=== PATIENT | female | born 1960 | race Caucasian/White ===

== ENCOUNTER 2022-05-07 15:41 | Inpatient (IN) | payer MEDICAID, SELFPAY ==
[2022-05-07] VITALS (188 sets, daily range): BP systolic 147–205; BP diastolic 84–151; PULSE 61–135; RESP 14–51; TEMP 36.3–37.3; O2SAT 90–100
--- NOTE | 2022-05-07 15:30 | RT.EKG_ITS ---
APPROVED REPORT Exam: Resting ECG Reason for Exam: sob Patient Location: E HR:125 bpm ECG Measurements Heart Rate 125 AXIS SD 149 P 75 QRSd 82 QRS -20 QT 312 T [id number] QTc 450 Conclusion Sinus tachycardia...rate> 99 Probable left atrial enlargement...P >50mS, <-0.10mV V1 LVH with secondary repolarization abnormality...multi-LVH criteria, abnrm ST-T. Sinus. Normal qrs. Reassuring qtc. 1mm ST depression/T wave inversion V5. No STEMI. I have reviewed and interpreted ECG and agree with software generated interpretation.
--- NOTE | 2022-05-07 16:00 | DI.CT_ITS ---
Exam(s) CT CHEST/ABD/PEL WO EXAM: CT CHEST/ABD/PEL WO CLINICAL HISTORY: Chest Pain, SOB,. TECHNIQUE: Imaging Protocol: Axial computed tomography images with coronal and sagittal reformatted images were created and reviewed CONTRAST MATERIAL: Intravenous: none Oral: None COMPARISON: No exams were available for comparison FINDINGS: CHEST: LUNGS: There is increased bilateral interstitial pattern and there are small bilateral pleural effusi ons, right slightly larger than left. Some fluid is seen in the left major fissure. No confluent in filtrates. There is a subpleural nodule in the right upper lobe measuring 8 by 6 mm. There is anoth er nodular infiltrate in the right lower lobe just above the hemidiaphragm measuring 11 by 9 mm. No significant findings in the trachea and mainstem bronchi. No bronchiectasis. MEDIASTINUM: There are mildly enlarged lymph nodes in the anterior left mediastinal fat and subcarina l region. Also right paratracheal. Hilar regions difficult to assess for adenopathy without IV cont rast. No axillary adenopathy. No supraclavicular adenopathy evident. Visualized thyroid unremarkab le. CARDIAC: Mild cardiomegaly. Slight thickening of the pericardium but without a large pericardial eff usion.Caliber of the thoracic aorta is within normal limits. OSSEOUS: No significant osseous lesions.No fractures.. OTHER: There is a well defined benign-appearing cystic mass in the subcutaneous tissues over the righ t side of the back measuring 2 by 1.3 cm. Probably a large sebaceous cyst. No other similar finding s seen elsewhere in the subcutaneous tissues. ABDOMEN: There is no ascites. LIVER: There is a 9 x 7 millimeter probable benign cyst in the left hepatic lobe. No other obvious i ntra hepatic findings on this noninfused study. GALLBLADDER/BILIARY: No obvious gallbladder pathology. CBD is not dilated. PANCREAS: No evidence of obvious pancreatic mass nor dilatation of the pancreatic duct. SPLEEN: Spleen is not enlarged. No obvious intrasplenic lesions. ADRENALS: There are no significant adrenal masses. KIDNEYS: No calculi nor hydronephrosis. No obvious solid renal masses. There is a benign cyst in the inferior pole region of the left kidney which measures 2.4 x 2.4 cm. There is a subtle density in th e lateral cortex of the right kidney measuring 1.5 x 1.6 cm, difficult to assess without IV contrast. May not be simple cyst. ABDOMINAL AORTA: Abdominal aorta is not enlarged. LYMPH NODES: There is no retroperitoneal nor para-aortic adenopathy. ABDOMINAL WALL/GI: No evidence of significant anterior abdominal wall nor inguinal hernia. No evidence of bowel obstruction. PELVIS: LYMPH NODES: There is no intrapelvic nor inguinal adenopathy. GI: No evidence of appendicitis.No evidence of sigmoid diverticulitis. URINARY BLADDER: No calculi nor obvious masses evident REPRODUCTIVE: Uterus and adnexal regions unremarkable. No masses. No free fluid. OSSEOUS: No significant osseous lesions. No fractures. IMPRESSION: 1. Cardiomegaly. Interstitial disease bilaterally and small bilateral pleural effusions. These find ings are most probably consistent with pulmonary edema. 2. There are 2 nodular densities in the right lung measuring 8 mm in the right upper lobe and 11 mm i n the right lower lobe just above the hemidiaphragm. 3. There are enlarged lymph nodes in the mediastinum both in the anterior mediastinal fat and in the subcarinal region. These above findings require close follow-up. 4. There is a benign cyst in the left kidney measuring 2.4 x 2.4 cm. There is a subtle suggestion o n this non few study of a 1.5 x 1.6 cm complicated cyst or nodule in the right kidney. Recommend fol low-up ultrasound of the kidneys. First read by [facility]. Final report called by myself to ER provider 05/07/2022 7:30 p.m. RADIATION DOSE DELIVERED: 1,013.82mGy.cm Total DLP DATA REPOSITORY: All CT scans at this facility are submitted to the National Radiology Data Registry (NRDR) Dose Index Registry (DIR) with the [employer] (ACR). RADIATION OPTIMIZATION: All CT scans at this facility use at least one of these dose optimization te chniques: automated exposure control; mA and/or kV adjustment per patient size (includes targeted exa ms where dose is matched to clinical indication); or iterative reconstruction.
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
[2022-05-07 16:17] LABS: Abs Immature Grans 0.02 10^3/uL (0.0-0.06); Absolute Eosinophil Count 0.19 10^3/uL (0.0-0.7); Absolute Lymphocyte Count 1.89 10^3/uL (1.2-3.4); Absolute Monocyte Count 0.31 10^3/uL (0.1-0.8); Absolute Neutrophil Count 5.34 10^3/uL (1.2-6.7); Basophils % 1.3; Eosinophils % 2.4; HCT 41.5 % (36.0-46.0); HGB 12.8 g/dL (11.2-15.7); Immature Grans % 0.3; Lymphocytes % 24.1; MCH 26.3 pg (27.0-33.0); MCHC 30.8 % (32.0-36.0); MCV 85 fL (80-95); MPV 9.5 fL (8.0-11.0); Monocytes % 3.9; Platelet Count 340 10^3/uL (130-400); RBC 4.86 10^6/uL (3.93-5.22); RDW 15.1 % (11.7-14.6); RDW-SD 46.3 fL; WBC 7.85 10^3/uL (4.4-10.8)
[2022-05-07] MEDS: LORazepam 2 MG/ML VIAL 0.5 MG IVP (16:23)
[2022-05-07] MEDS: methylPREDNISolone SUCC 125 MG VIAL IVP (16:24)
[2022-05-07] MEDS: Normal Saline 500 ML IV (16:24)
[2022-05-07 16:40] LABS: ALT 55 U/L (14-59); AST 40 U/L (15-37); Albumin 4.2 g/dL (3.4-5.0); Alkaline Phosphatase 82 U/L (46-116); Anion Gap 14.5 mmol/L (3-11); BUN 15 mg/dL (7-18); Bilirubin, Total 0.8 mg/dL (0.2-1.0); CO2 26.5 mmol/L (21.0-32.0); CREATININE 1.1 mg/dL (0.55-1.02); Calcium 9.4 mg/dL (8.5-10.1); Chloride 105 mmol/L (98-107); Estimated GFR 57.88 (mL/min/1.73m2); Glucose 152 mg/dL (74-106); Magnesium 2.1 mg/dL (1.8-2.4); Potassium 3.7 mmol/L (3.5-5.1); Sodium 146 mmol/L (136-145); Total Protein 8.4 g/dL (6.4-8.2); Troponin I < 50 ng/L (<or=60)
[2022-05-07 17:03] LABS: COVID-19 PCR Negative (Negative); Influenza A PCR Negative (Negative); Influenza B PCR Negative (Negative); RSV PCR Negative (Negative)
[2022-05-07 17:04] LABS: D-Dimer 1111 ng/mlFEU (<500)
[2022-05-07 17:06] LABS: Source Nasopharynx
--- NOTE | 2022-05-07 17:33 | DI.VRAD_ITS ---
PROCEDURE INFORMATION: Exam: CT Chest Without Contrast; Diagnostic Exam date and time: 05/07/2022 4:55 PM Age: 61 years old Clinical indication: Other: Chest pain, SOB, TECHNIQUE: Imaging protocol: Diagnostic computed tomography of the chest without contrast. COMPARISON: No relevant prior studies available. FINDINGS: Lungs: Diffuse thickening of the interstitium throughout. No consolidation. No suspicious lung masses. Pleural spaces: Small layering bilateral pleural effusions. Heart: Heart is enlarged. Small pericardial effusion. Lymph nodes: 1.3 cm short axis right paratracheal lymph node. 0.8 cm short axis prevascular lymph node. More posteriorly is a 0.9 cm prevascular lymph node. No suspicious axillary adenopathy. No obvious hilar adenopathy. Vasculature: Mild calcifications of the thoracic aorta. No aneurysmal dilatation. Bones/joints: Degenerative changes of the thoracic spine. No suspicious lytic or blastic bone lesions. Soft tissues: Unremarkable. IMPRESSION: 1. Enlarged heart, small bilateral pleural effusions, small pericardial effusion, and thickening of the interstitium suspicious for interstitial edema can be due to congestive heart failure in the proper clinical setting. 2. Enlarged right paratracheal lymph node. Etiology is unclear. PROCEDURE INFORMATION: Exam: CT Abdomen And Pelvis Without Contrast Exam date and time: 05/07/2022 4:55 PM Age: 61 years old Clinical indication: Other: Chest pain, SOB, TECHNIQUE: Imaging protocol: Computed tomography of the abdomen and pelvis without contrast. COMPARISON: No relevant prior studies available. FINDINGS: Lungs: See chest CT report. Liver: Normal. No mass. Gallbladder and bile ducts: Normal. No calcified stones. No ductal dilation. Pancreas: Normal. No ductal dilation. Spleen: Normal. No splenomegaly. Adrenal glands: Normal. No mass. Kidneys and ureters: 2.1 cm simple cyst in the lower pole of the left kidney. No other obvious renal masses. No hydronephrosis. No renal calculi. Stomach and bowel: Unremarkable. No obstruction. No mucosal thickening. Appendix: No evidence of appendicitis. Intraperitoneal space: Unremarkable. No free air. No significant fluid collection. Vasculature: Unremarkable. No abdominal aortic aneurysm. Lymph nodes: Unremarkable. No enlarged lymph nodes. Urinary bladder: Unremarkable as visualized. Reproductive: Unremarkable as visualized. Bones/joints: Degenerative changes of the lumbar spine. No suspicious lytic or blastic bone lesions. Soft tissues: Unremarkable. IMPRESSION: No acute findings in the abdomen and pelvis Dictated and Authenticated by: Kory Quintanilla MD. Ordering:STEPHANIE Street MD
[2022-05-07 17:38] LABS: BE (Venous) -1 mmol/L (-2-3); HCO3 (Venous) 24 mmol/L (23-28); O2 Sat (Venous) 72 %; TCO2 (Venous) 22 mmol/L (24-29); pCO2 (Venous) 36 mmHg (41-51); pH (Venous) 7.43 (7.31-7.41); pO2 (Venous) 38 mmHg
[2022-05-07] MEDS: Albuterol 2.5 MG/3 ML INH SOLN VIAL UPD (17:39)
[2022-05-07 17:40] LABS: Lactate 1.4 mmol/L (0.6-1.4)
[2022-05-07] MEDS: Ipratropium 0.5 MG/2.5 ML UPD VIAL UPD (17:40)
[2022-05-07 18:05] LABS: NT-proBNP 6453 pg/mL (<300)
[2022-05-07] MEDS: MORPHine 4 MG/ML SYR IVP (18:07)
[2022-05-07] MEDS: Furosemide 40 MG/4 ML VIAL IVP (18:43)
[2022-05-07 18:59] LABS: INR 1.1 (0.9-1.1); PTT Activated 23.2 sec (21.5-31.9); Prothrombin Time 11.1 sec (9.3-11.0)
--- NOTE | 2022-05-07 19:15 | DI.CT_ITS ---
Exam(s) CT CHEST PE CTA EXAM: CT CHEST PE CTA CLINICAL HISTORY: SOB, Elevated Dimer. TECHNIQUE: Imaging Protocol: CT angiography of the chest was performed using pulmonary embolus chelle col. Multi planar reconstructions were performed. CONTRAST MATERIAL: Intravenous: Omnipaque 350 Contrast volume: 100 cc COMPARISON: CT CT CHEST/ABD/PEL WO from 05/07/2022 FINDINGS: CHEST: PULMONARY ARTERIES: There are no intraluminal filling defects to suggest acute pulmonary emboli. LUNGS: Bilateral symmetrical infiltrates and small-moderate size bilateral pleural effusions again no iban, most probably pulmonary edema.. MEDIASTINUM: No obvious hilar adenopathy but there are enlarged lymph nodes in the anterior mediastin al fat and slightly prominent right paratracheal lymph nodes. Visualized thyroid unremarkable. CARDIAC: Cardiomegaly. Slight thickening of the pericardium.Caliber of the thoracic aorta is within normal limits. No evidence dissection. There is no significant shift of the interventricular septum. PARTIALLY VISUALIZED UPPERMOST ABDOMEN: Reflux of contrast noted into the intrahepatic IVC and system ic intra hepatic veins. OSSEOUS: No significant osseous lesions.No fractures.. IMPRESSION: 1. No evidence of acute pulmonary emboli. No evidence of pulmonary infarction. 2. Bilateral extensive ground-glass infiltrates and bilateral pleural effusions and mild cardiomegaly , consistent with probable pulmonary edema. 3. Enlarged mediastinal lymph nodes noted which are unrelated to pulmonary edema. No obvious hilar a denopathy. First read by [facility]. RADIATION DOSE DELIVERED: 273.03mGy.cm Total DLP DATA REPOSITORY: All CT scans at this facility are submitted to the National Radiology Data Registry (NRDR) Dose Index Registry (DIR) with the [employer] (A[employer]). RADIATION OPTIMIZATION: All CT scans at this facility use at least one of these dose optimization te chniques: automated exposure control; mA and/or kV adjustment per patient size (includes targeted exa ms where dose is matched to clinical indication); or iterative reconstruction.
[2022-05-07 19:19] LABS: Troponin I < 50 ng/L (<or=60)
[2022-05-07] MEDS: diphenhydrAMINE 50 MG/ML VIAL IVP (19:30)
[2022-05-07] MEDS: Omnipaque 350 MG/ML 100 ML BTL IJ (20:33)
[2022-05-07] MEDS: Normal Saline - Diluent 50 ML VIAL IJ (20:34)
[2022-05-07] MEDS: Normal Saline Flush 10 ML SYR IVP (20:35)
--- NOTE | 2022-05-07 21:06 | DI.VRAD_ITS ---
PROCEDURE INFORMATION: Exam: CTA Chest With Contrast Exam date and time: 05/07/2022 8:36 PM Age: 61 years old Clinical indication: Abnormal findings; Abnormal diagnostic tests; Shortness of breath; Patient HX: SOB, elevated d-dimer TECHNIQUE: Imaging protocol: Computed tomographic angiography of the chest with contrast. 3D rendering (Not supervised by radiologist): MIP and/or 3D reconstructed images were created by the technologist. Radiation optimization: All CT scans at this facility use at least one of these dose optimization techniques: automated exposure control; mA and/or kV adjustment per patient size (includes targeted exams where dose is matched to clinical indication); or iterative reconstruction. Contrast material: OMNIPAQUE 350; Contrast volume: 60 ml; Contrast route: INTRAVENOUS (IV); COMPARISON: CT CHEST/ABD/PEL WO 05/07/2022 4:55 PM FINDINGS: Pulmonary arteries: No evidence of pulmonary embolus. Aorta: Unremarkable. No aortic aneurysm. No aortic dissection. Veins: Reflux of contrast into the inferior vena cava and hepatic veins. Lungs: Scattered patchy ground-glass densities and thickening of the interstitium. No consolidation. Pleural spaces: Small bilateral pleural effusions are unchanged. Heart: Enlargement of the heart and small pericardial effusion, unchanged. Lymph nodes: 1.3 cm right paratracheal lymph node is unchanged from the previous study. Subcentimeter prevascular lymph nodes are again noted. No axillary or hilar adenopathy. Bones/joints: Degenerative changes of the thoracic spine. No acute bone findings. Soft tissues: Unremarkable. IMPRESSION: 1. No evidence of pulmonary embolus. 2. Small bilateral pleural effusions, small pericardial effusion, interstitial edema are likely due to right ventricular dysfunction as there is reflux of contrast into the inferior vena cava and veins. The scattered patchy ground-glass densities are likely due to pulmonary edema. 3. Enlarged right paratracheal lymph node right paratracheal lymph node Dictated and Authenticated by: Kory Quintanilla MD. Ordering:STEPHANIE Street MD
--- NOTE | 2022-05-07 21:13 | HPE_ITS ---
Date of service: 05/07/22 Time of Service: 21:13 Assessment and Plan Assessment and plan (1) Pulmonary edema: Start date: 05/07/22 Status: Acute Assessment and plan: This a 61-year-old lady at risk for cardiovascular disease with untreated hypertension chronically and not being followed. She presents with dyspnea and pulmonary edema by CT along with effusions pericardial and pleural. She responded to IV Lasix but will need to be initiated on beta-blockers for CHF and hypertension with troponins thus far trending negative. Echocardiogram should be updated with transesophageal echocardiogram and cardiology consultation is in place. I will check her lipid profile but initiate atorvastatin and we should consider an SUREKHA inhibitor or advancing straight to Entresto if cardiology advises. The patient had a gradual onset of symptoms over 3 months worsening the day of admission. This appears to be a slight exacerbation of a chronic problem. She will be screened for sequela from her IV drug use and transesophageal echocardiogram should be adequate for evaluating her valves though no murmurs were auscultated. She will be monitored on telemetry and continue with IV Lasix and a Love catheter for adequate intake and output measurements. She is a full code. (2) Acute hypoxemic respiratory failure: Start date: 05/07/22 Status: Acute Assessment and plan: Most likely has a sequela to advancing CHF with patient doing well with O2 supplementation. This should improve with diuresis. Continue monitoring on O2. Repeat VBG if needed with initial VBG revealing respiratory alkalosis with her CHF. She does not appear to have any underlying lung disease despite her long- term secondary smoke exposure. (3) Pleural effusion: Start date: 05/07/22 Status: Acute Assessment and plan: This and the pericardial fusion should respond to IV Lasix. Cardiology evaluation with echocardiogram as planned. Trend troponins and telemetry. Initiate treatment for CHF as discussed. (4) Pericardial effusion: Start date: 05/07/22 Status: Acute Assessment and plan: Diuresis and follow-up echocardiogram with cardiology consultation. (5) HTN (hypertension): Status: Chronic Assessment and plan: Untreated and this should respond to diuresis along with beta-veronica. Long- term treatment of CHF will most likely controlled this problem. Update transesophageal echocardiogram. Cardiology consultation is ordered. (6) Substance abuse in remission: Assessment and plan: Previous IV drug use more than 8 years ago and closer to a decade from previous use. She does want screening and will have HIV and hep C screening as well as urine drug screen though she did receive 1 dose of morphine when she first arrived to the ED. She denies any drug use and is not in treatment with some avoidance behavior though she appears to be safe at this time with her family support and life with her grandchildren. (7) Hypernatremia: Start date: 05/07/22 Status: Acute Assessment and plan: Patient is slightly hypernatremic with normal potassium but slightly elevated liver function tests with no history of alcohol abuse and slight elevation in glucose which will be trended only with morning lab and having no history of diabetes mellitus. She also has a slightly elevated creatinine with no baseline available and treatment of her CHF should help mostly problems including increased anion gap. She will have encouragement to hydrate orally and avoid IV fluids. (8) Acute hyperglycemia: Start date: 05/07/22 Status: Acute Assessment and plan: Possibly secondary to stress and will trend with venous labs. If persist further evaluation and treatment as appropriate. No history of diabetes mellitus. History of Present Illness History of Present Illness Chief Complaint: Dyspnea with cough Narrative: This is a 61-year-old female patient who has a history of hypertension untreated for the last several years and not seeing a physician during that time. She previously had children with spontaneous vaginal deliveries without complications and no major surgeries. She also was an IV drug user in the past with anything she could get but quit when her grandchildren were born and she her present about 8 years ago. She has never been screened for HIV or hep C. She denies any previous infections from her IV drug use. She is not on treatment at this time. She is fearful of catching COVID but was negative upon testing for COVID and RSV in the ED but has not been vaccinated. She is a non-smoker but has lived in secondary smoke most of her life. She has had no significant weight gain but has had progressive dyspnea with exertion and now dyspnea at rest with PND and dry cough. She also has slight edema over her ankles at the end of the day. She did have some mild chest discomfort and back pain but this appears to be chronic and not associated with her breathing or with exertion. She had negative troponins in the ED. She did receive morphine for her shortness of breath and was initiated on COPD exacerbation treatment but this will not be continued. CT scan of the chest did reveal pulmonary edema with small bilateral pleural effusions and pericardial effusion with RV dysfunction. Echocardiogram is pending with POC ultrasound the heart ordered and preliminary interpretation is that there is a decreased left ventricular ejection fraction. Patient has less dyspnea and her blood pressure has improved with IV Lasix with Love catheter revealing adequate diuresis. She is slightly tachycardic but having no chest discomfort or shortness of breath when I examined her after IV Lasix. She is a full code. Review of Systems Narrative: 13 point review of systems otherwise unrevealing or stable. PFSH All Active Problems (Updated 05/07/22 @ 22:45 by Power Ward) Acute hyperglycemia (Acute) Hypernatremia (Acute) HTN (hypertension) (Chronic) Pericardial effusion (Acute) Acute hypoxemic respiratory failure (Acute) Pulmonary edema (Acute) Pleural effusion (Acute) Medical History (Updated 05/07/22 @ 22:45 by Power Ward) Substance abuse in remission Social History Smoking/Tobacco Use Status: Never Smoking risk assessment performed?: Yes Alcohol Intake: never Drug use: Never Substance use type: does not use Do you feel safe at home: Yes Do you feel safe in your relationship?: Yes Meds Allergies and Home Medications Allergies Allergy/AdvReac Type Severity Reaction Status Date / Time Iodinated Contrast Media Allergy Unknown Unverified 05/07/22 15:51 Home Medications Medication Instructions Recorded Confirmed Type Unknown [No Known Home Meds] 05/07/22 05/07/22 History Exam Narrative Exam Narrative: General: Patient appears older than stated age, alert and oriented x3 and in no acute distress. She is slightly anxious with pressured speech. She is comfortable without tachypnea at rest. HEENT: Normocephalic, eyes with pupils equal and reactive to light symmetrically, extraocular intact and sclera anicteric. Oropharynx with dry mucosa and poor dentition with crooked and missing teeth. Neck: Supple without JVD. Back: Stooped posture without CVA tenderness, decreased range of motion loss of lordotic curve. Lungs: Decreased aeration both bases more on the right than left with slight expiratory crackles on the right more than left. No increased expiratory phase and no expiratory wheeze. No focalizing inspiratory rhonchi or rales. Breast: Exam deferred. Heart: Regular rate and rhythm with no appreciable murmur or gallop with slightly hyperdynamic precordium. No heaves. Abdomen: Scaphoid contour, soft and nontender to palpation with no palpable hepatosplenomegaly. No guarding or rebound. Bowel sounds are positive in all quadrants. Genitalia/rectal: Exam deferred with Love catheter intact draining clear urine. Extremities: Without clubbing or cyanosis. 1+ pitting edema both ankles. Good capillary refill with peripheral pulses intact. Skin: Normal color, warm and dry. Neuro: Cranial nerves II to XII gross intact, no focalizing motor deficits and no tremor. Psych: Slightly anxious with normal mood. Pressured speech. No abnormal thought processes. Remote and recent memory grossly intact. Results Imaging Imaging Studies: Exam: CTA Chest With Contrast Exam date and time: 05/07/2022 8:36 PM Age: 61 years old Clinical indication: Abnormal findings; Abnormal diagnostic tests; Shortness of breath; Patient HX: SOB, elevated d-dimer TECHNIQUE: Imaging protocol: Computed tomographic angiography of the chest with contrast. 3D rendering (Not supervised by radiologist): MIP and/or 3D reconstructed images were created by the technologist. Radiation optimization: All CT scans at this facility use at least one of these dose optimization techniques: automated exposure control; mA and/or kV adjustment per patient size (includes targeted exams where dose is matched to clinical indication); or iterative reconstruction. Contrast material: OMNIPAQUE 350; Contrast volume: 60 ml; Contrast route: INTRAVENOUS (IV);? COMPARISON: CT CHEST/ABD/PEL WO 05/07/2022 4:55 PM FINDINGS: Pulmonary arteries: No evidence of pulmonary embolus. Aorta: Unremarkable. No aortic aneurysm. No aortic dissection. Veins: Reflux of contrast into the inferior vena cava and hepatic veins. Lungs: Scattered patchy ground-glass densities and thickening of the interstitium. No consolidation. Pleural spaces: Small bilateral pleural effusions are unchanged. Heart: Enlargement of the heart and small pericardial effusion, unchanged. Lymph nodes: 1.3 cm right paratracheal lymph node is unchanged from the previous study. Subcentimeter prevascular lymph nodes are again noted. No axillary or hilar adenopathy. Bones/joints: Degenerative changes of the thoracic spine. No acute bone findings. Soft tissues: Unremarkable. IMPRESSION: 1. ? No evidence of pulmonary embolus. 2. ? Small bilateral pleural effusions, small pericardial effusion, interstitial edema are likely due to right ventricular dysfunction as there is reflux of contrast into the inferior vena cava and veins. The scattered patchy ground-glass densities are likely due to pulmonary edema. 3. ? Enlarged right paratracheal lymph node right paratracheal lymph node Dictated and Authenticated by: Kory Quintanilla MD. CT CHEST/ABD/PEL WO EXAM: ? CT CHEST/ABD/PEL WO CLINICAL HISTORY: ? Chest Pain, SOB,. ? TECHNIQUE:? Imaging Protocol: Axial computed tomography images with coronal and sagittal reformatted images were created and reviewed CONTRAST MATERIAL:? Intravenous: none Oral: None COMPARISON:? No exams were available for comparison FINDINGS: CHEST: LUNGS: There is increased bilateral interstitial pattern and there are small bilateral pleural effusions, right slightly larger than left.? Some fluid is seen in the left major fissure.? No confluent infiltrates.? There is a subp leural nodule in the right upper lobe measuring 8 by 6 mm.? There is another nodular infiltrate in the right lower lobe just above the hemidiaphragm measuring 11 by 9 mm.? No significant findings in the trachea and mainstem bronchi.? No bronchiectasis. MEDIASTINUM: There are mildly enlarged lymph nodes in the anterior left mediastinal fat and subcarinal region.? Also right paratracheal.? Hilar regions difficult to assess for adenopathy without IV contrast.? No axillary adenopathy.? No supraclavicular adenopathy evident.? Visualized thyroid unremarkable. CARDIAC: Mild cardiomegaly.? Slight thickening of the pericardium but without a large pericardial effusion.Caliber of the thoracic aorta is within normal limits. OSSEOUS: No significant osseous lesions.No fractures.. OTHER: There is a well defined benign-appearing cystic mass in the subcutaneous tissues over the right side of the back measuring 2 by 1.3 cm.? Probably a large sebaceous cyst.? No other similar findings seen elsewhere in the subcutaneous tissues. ABDOMEN: There is no ascites. LIVER: There is a 9 x 7 millimeter probable benign cyst in the left hepatic lobe.? No other obvious intra hepatic findings on this noninfused study.? GALLBLADDER/BILIARY: No obvious gallbladder pathology.? CBD is not dilated. PANCREAS: No evidence of obvious pancreatic mass nor dilatation of the pancreatic duct.? SPLEEN: Spleen is not enlarged.? No obvious intrasplenic lesions.? ADRENALS: There are no significant adrenal masses. KIDNEYS: No calculi nor hydronephrosis. No obvious solid renal masses. There is a benign cyst in the inferior pole region of the left kidney which measures 2.4 x 2.4 cm.? There is a subtle density in the lateral cortex of the right kidney measuring 1.5 x 1.6 cm, difficult to assess without IV contrast.? May not be simple cyst. ABDOMINAL AORTA: Abdominal aorta is not enlarged. LYMPH NODES: There is no retroperitoneal nor para-aortic adenopathy. ABDOMINAL WALL/GI: No evidence of significant anterior abdominal wall nor inguinal hernia.? No evidence of bowel obstruction. PELVIS:? LYMPH NODES: There is no intrapelvic nor inguinal adenopathy. GI: No evidence of appendicitis.No evidence of sigmoid diverticulitis. URINARY BLADDER: No calculi nor obvious masses evident REPRODUCTIVE: Uterus and adnexal regions unremarkable.? No masses.? No free fluid. OSSEOUS: No significant osseous lesions.? No fractures. IMPRESSION: 1. Cardiomegaly.? Interstitial disease bilaterally and small bilateral pleural effusions.? These findings are most probably consistent with pulmonary edema. 2. There are 2 nodular densities in the right lung measuring 8 mm in the right upper lobe and 11 mm in the right lower lobe just above the hemidiaphragm. 3. There are enlarged lymph nodes in the mediastinum both in the anterior mediastinal fat and in the subcarinal region.? These above findings require close follow-up. 4.? There is a benign cyst in the left kidney measuring 2.4 x 2.4 cm.? There is a subtle suggestion on this non few study of a 1.5 x 1.6 cm complicated cyst or nodule in the right kidney.? Recommend follow-up ultrasound of the kidneys. Labs 05/07/22 16:11 05/07/22 16:11 Labs: Laboratory Results - last 24 hr 05/07/22 05/07/22 05/07/22 16:11 16:11 16:11 WBC 7.85 RBC 4.86 Hgb 12.8 Hct 41.5 MCV 85 MCH 26.3 L MCHC 30.8 L RDW 15.1 H Plt Count 340 MPV 9.5 Immature Gran % 0.3 Neutrophils % 68.0 Lymphocytes % 24.1 Monocytes % 3.9 Eosinophils % 2.4 Basophils % 1.3 Nucleated RBC % 0.0 Absolute Neutrophils 5.34 Absolute Lymphocytes 1.89 Absolute Monocytes 0.31 Absolute Eosinophils 0.19 Absolute Basophils 0.10 PT INR APTT D-Dimer 1111 H VBG pH VBG pCO2 VBG pO2 VBG HCO3 VBG Total CO2 VBG O2 Saturation VBG Base Excess VBG Lactate Sodium 146 H Potassium 3.7 Chloride 105 Carbon Dioxide 26.5 Anion Gap 14.5 H BUN 15 Creatinine 1.1 H Est GFR (CKD-EPI 2020) 57.88 Glucose 152 H Calcium 9.4 Magnesium 2.1 Total Bilirubin 0.8 AST 40 H ALT 55 Alkaline Phosphatase 82 Troponin I < 50 NT-Pro-B Natriuret Pep Total Protein 8.4 H Albumin 4.2 COVID-19 Source SARS-CoV-2 (PCR) Influenza Type A (PCR) Influenza Type B (PCR) RSV (PCR) 05/07/22 05/07/22 05/07/22 16:20 17:35 17:35 WBC RBC Hgb Hct MCV MCH MCHC RDW Plt Count MPV Immature Gran % Neutrophils % Lymphocytes % Monocytes % Eosinophils % Basophils % Nucleated RBC % Absolute Neutrophils Absolute Lymphocytes Absolute Monocytes Absolute Eosinophils Absolute Basophils PT INR APTT D-Dimer VBG pH 7.43 H VBG pCO2 36 L VBG pO2 38 VBG HCO3 24 VBG Total CO2 22 L VBG O2 Saturation 72 VBG Base Excess -1 VBG Lactate Sodium Potassium Chloride Carbon Dioxide Anion Gap BUN Creatinine Est GFR (CKD-EPI 2020) Glucose Calcium Magnesium Total Bilirubin AST ALT Alkaline Phosphatase Troponin I NT-Pro-B Natriuret Pep 6453 H Total Protein Albumin COVID-19 Source Nasopharynx SARS-CoV-2 (PCR) Negative Influenza Type A (PCR) Negative Influenza Type B (PCR) Negative RSV (PCR) Negative 05/07/22 05/07/22 05/07/22 17:35 18:41 18:57 WBC RBC Hgb Hct MCV MCH MCHC RDW Plt Count MPV Immature Gran % Neutrophils % Lymphocytes % Monocytes % Eosinophils % Basophils % Nucleated RBC % Absolute Neutrophils Absolute Lymphocytes Absolute Monocytes Absolute Eosinophils Absolute Basophils PT 11.1 H INR 1.1 APTT 23.2 D-Dimer VBG pH VBG pCO2 VBG pO2 VBG HCO3 VBG Total CO2 VBG O2 Saturation VBG Base Excess VBG Lactate 1.4 Sodium Potassium Chloride Carbon Dioxide Anion Gap BUN Creatinine Est GFR (CKD-EPI 2020) Glucose Calcium Magnesium Total Bilirubin AST ALT Alkaline Phosphatase Troponin I < 50 NT-Pro-B Natriuret Pep Total Protein Albumin COVID-19 Source SARS-CoV-2 (PCR) Influenza Type A (PCR) Influenza Type B (PCR) RSV (PCR) Last Vital Signs Temp 36.3 C L 05/07/22 15:45 Pulse 61 05/07/22 20:49 Resp 25 H 05/07/22 20:51 BP 149/112 H 05/07/22 20:49 Pulse Ox 98 05/07/22 20:51 Time Spent Time spent with Patient: >75 minutes Time was spent: preparing to see the patient(eg.review tests), obtaining and/or reviewing separately otained hiistory, ordering medications,tests, procedures, referring, communicating with other health elderly caregiver, indepentently interpreting results, counseling the patient and care coordination
[2022-05-07 22:15] LABS: Bilirubin Negative (Negative); Blood Trace-intact (Negative); Clarity Clear (Clear); Glucose Negative (Negative); Ketones Negative (Negative); Leukocyte Esterase Negative (Negative); Nitrite Negative (Negative); Specific Gravity 1.015 (1.005-1.025); Urobilinogen 0.2 mg/dL (Up to 0.2)
[2022-05-07 22:24] LABS: RBC 0-2 HPF (0-2); WBC 0-2 HPF (0-5)
[2022-05-07 22:25] LABS: Bacteria Rare HPF (Negative); C & S Indicated? No; Crystals Negative HPF (Negative); Epithelial Cells Negative HPF (Negative); Mucus Negative (Negative)
[2022-05-07 22:28] LABS: *AMPHETAMINES SCREEN URINE Negative (Negative); *BARBITURATES SCREEN URINE Negative (Negative); *BENZODIAZEPINES SCREEN URINE Negative (Negative); Cannabinoids THC Negative (Negative); Cocaine Screen,Urine Negative (Negative); METHADONE URINE SCREEN Negative (Negative); OPIATES URINE SCREEN Positive (Negative); Tricyclic Antidepressants Negative (Negative)
[2022-05-07] MEDS: Metoprolol 25 MG TAB PO (23:20)
[2022-05-07] MEDS: Enoxaparin 40 MG/0.4 ML SYR SC (23:36)
[2022-05-08] VITALS (12 sets, daily range): BP systolic 119–146; BP diastolic 68–94; PULSE 61–98; RESP 16–18; TEMP 36.5–37.4; O2SAT 95–99
--- NOTE | 2022-05-08 | DI.US_ITS ---
Exam(s) US EXTREMITY VENOUS BI EXAM: US EXTREMITY VENOUS BI CLINICAL HISTORY: LE edema, elevated d-dimer TECHNIQUE: Grayscale, color, and doppler imaging of the deep venous system of both lower extremities was performed. COMPARISON: US POCUS EXAM from 05/07/2022 FINDINGS: There is no evidence of intraluminal thrombus and there is normal compression and augmentation demons trated within the common femoral veins, femoral veins, and popliteal veins of both lower extremities. In the calves the interrogated veins also exhibit normal compression/ augmentation properties. The greater saphenous veins also appear patent as do the saphenofemoral junctions bilaterally.. IMPRESSION: 1. No ultrasound evidence of DVT in either lower extremity. DATA REPOSITORY:
[2022-05-08 01:00] LABS: ESR 15 mm/hr (0-30)
[2022-05-08 01:19] LABS: C-Reactive Protein 0.17 mg/dL (0.0-0.3)
[2022-05-08 01:26] LABS: Troponin I < 50 ng/L (<or=60)
[2022-05-08 06:12] LABS: HCT 32.7 % (36.0-46.0); HGB 10.3 g/dL (11.2-15.7); MCH 26.6 pg (27.0-33.0); MCHC 31.5 % (32.0-36.0); MCV 85 fL (80-95); MPV 9.8 fL (8.0-11.0); Platelet Count 249 10^3/uL (130-400); RBC 3.87 10^6/uL (3.93-5.22); RDW 14.7 % (11.7-14.6); RDW-SD 45.3 fL; WBC 7.01 10^3/uL (4.4-10.8)
[2022-05-08] MEDS: Metoprolol 25 MG TAB PO (06:14)
[2022-05-08 06:31] LABS: INR 1.1 (0.9-1.1); Prothrombin Time 11.3 sec (9.3-11.0)
[2022-05-08 07:26] LABS: Troponin I < 50 ng/L (<or=60)
[2022-05-08 07:48] LABS: ALT 38 U/L (14-59); AST 25 U/L (15-37); Albumin 3.3 g/dL (3.4-5.0); Alkaline Phosphatase 68 U/L (46-116); Anion Gap 12.6 mmol/L (3-11); BUN 14 mg/dL (7-18); Bilirubin, Direct 0.2 mg/dL (0.0-0.2); Bilirubin, Total 0.7 mg/dL (0.2-1.0); CO2 26.4 mmol/L (21.0-32.0); CREATININE 0.9 mg/dL (0.55-1.02); Calcium 8.8 mg/dL (8.5-10.1); Chloride 105 mmol/L (98-107); Estimated GFR 73.64 (mL/min/1.73m2); Glucose 129 mg/dL (74-106); Magnesium 1.9 mg/dL (1.8-2.4); NT-proBNP 11474 pg/mL (<300); Potassium 3.3 mmol/L (3.5-5.1); Sodium 144 mmol/L (136-145); Total Protein 6.8 g/dL (6.4-8.2)
[2022-05-08 08:01] LABS: Calculated LDL 112 mg/dL (<100); Cholesterol 170 mg/dL (<200); HDL Cholesterol 51 mg/dL (40-60); Triglyceride 39 mg/dL (<150)
[2022-05-08] MEDS: Furosemide 40 MG/4 ML VIAL IVP ×2 (08:15→16:31)
[2022-05-08] MEDS: Acetaminophen 325 MG TAB PO ×2 (08:16→21:56)
[2022-05-08] MEDS: Potassium Chloride 20 MEQ TABCR 40 MEQ PO (08:17)
[2022-05-08 09:01] LABS: Lab Add On Test DONE
[2022-05-08 09:29] LABS: Hemoglobin A1C 5.3 % (<5.7)
--- NOTE | 2022-05-08 09:58 | DI.US_ITS ---
APPROVED REPORT EXAM: Comprehensive 2D, Doppler, and color-flow Echocardiogram Patient Location: In-Patient Room/Bed: [address] Troubleshooter: Zaira Bello RDCS (AE) Indications: New onset heart failure with RV strain, substance abuse Other Information Study Quality: Adequate Conclusion Normal left ventricular wall thickness and chamber size. Estimated ejection fraction is 25%. There is global hypokinesis Right ventricle appears normal in size, hypocontractile Normal right atrial size. Left atrium is moderately dilated Aortic valve is trileaflet and mildly sclerotic with trace regurgitation Normal mitral valve with moderate mitral regurgitation Normal tricuspid valve with mild regurgitation. Estimated right ventricular systolic pressure is 37 mmHg Trivial pericardial effusion Wall motion Left Ventricle The left ventricle is normal size. Left ventricular systolic function is severely decreased. There is normal left ventricular wall thickness. There is global hypokinesis of the left ventricle. There is no ventricular septal defect visualized. LVEF is 25%. Right Ventricle Right ventricle is grossly normal in size. Right ventricle is moderately hypokinetic. The RVSP is 37. 4 mmHg. Atria Left atrium is moderately dilated. Right atrium is normal The interatrial septum is intact with no ev idence for an atrial septal defect. Aortic Valve The Aortic valve is mildly sclerotic. Aortic valve is trileaflet. There is no aortic valvular stenosi s. Trace aortic regurgitation. Mitral Valve The mitral valve is normal in structure. No evidence of mitral valve stenosis. Moderate mitral regur gitation. Tricuspid Valve The tricuspid valve is normal in structure. There is no tricuspid valve stenosis. Mild tricuspid regu rgitation. Pulmonic Valve The pulmonary valve is normal in structure. There is no pulmonic valvular stenosis. Trace pulmonic re gurgitation. Great Vessels The aortic root is normal in size. The ascending aorta is mildly dilated. Aortic arch is not well vis ualized. The IVC collapses <50% with inspiration. Pericardium Trace pericardial effusion. 2D Dimensions IVSD d PLAX 0.78 cm F: 0.6-1.0 LV Vol A2C d MOD 128.9 mL LVPW d PLAX 0.86 cm F: 0.6 - 1.0 LV Vol A4C d MOD 141.4 mL LVID d PLAX 4.95 cm F: 3.8 - 5.2 LA vol/ BSA A2C s A-L 43.6 mL/m2 LVDs 4.35 cm F: 2.2 - 3.5 LA vol/ BSA A4C s A-L 50.4 mL/m2 Ao Root d 2.87 cm F: 2.7 - 3.3 LA Vol/ BSA Biplane s A-L 49.0 mL/m2 RA Area A4C 11.67 cm2 LA Area A4C s MOD 23.23 cm2 RA Vol/ BSA A4C s A-L 17.3 mL/m2 LA Area A2C s MOD 20.68 cm2 Ao Asc Diam d 3.53 cm F: 2.3 - 3.1 LV EF A4C MOD 26.4 % LV EF Teichholz 26.0 % LV EF A2C MOD 25.5 % LVEF (Zambrano's) 24.83 % F: 54 - 74 LV EF Biplane MOD 24.8 % LV Volume 114.00 mL F: 46 - 106 SV 34.28 mL LV Volume Index 74.02 mL/m2 F: 29 - 61 SV Index 22.33 mL/m2 LV Vol Biplane MOD 138.1 mL FS 12.05 % M-Mode TAPSE 1.38 cm (M/F) >1.7 LV Diastology MV E' medial 0.057 (>0.07 m/s) E/A Ratio 2.2 LV E/e MED 19.15 (<14) MV E Vmax 1.09 (0.4-1.3 m/s) MV E' lateral 0.055 (>0.1 m/s) MV A Vmax 0.50 (0.4-1.3 m/s) LV E/e LAT 19.85 (<14) MV E/A Ratio 2.17 MV E/E' medial 19.20 MV E/E' lateral 19.88 Aortic Valve LVOT Area 2.62 cm2 AoV Area Vmax 2.24 cm2 LVOT Vmax 1.20 m/s AoV Area/ BSA (Vmax) 1.46 cm2/m2 LVOT Mean Jonah. 0.79 m/s BERNARDINO Mean Jonah. 2.06 cm2 LVOT Peak Grad 5.8 mmHg BERNARDINO Mean Jonah. Index 1.34 cm2/m2 LVOT Mean Grad 2.9 mmHg LVOT VTI 0.181 m LVOT Diam s 1.80 cm AoV Vmax 1.41 m/s Velocity Ratio 0.85 AoV Mean Jonah. 1.00 m/s AoV Peak Grad 8.0 mmHg LVOT SV 47.51 mL AoV Mean Grad 4.5 mmHg AoV VTI 0.205 m AoV Area VTI 2.31 cm2 AoV Area/ BSA (VTI) 1.51 cm/m2 Mitral Valve MV DT 118 (160-240 msec) MR Vmax 5.08 m/s MV PHT 34 msec MR VTI 1.637 m MV Area PHT 6.42 cm2 MR Peak Grad 103.4 mmHg MV VTI 0.200 m MR Mean Grad 73.3 mmHg MV Area VTI 2.38 (4.0-6.0 cm2) MR PISA Radius 0.50 cm MR EROA 0.11 cm2 MR Aliasing Velocity 0.35 m/s MR PISA 1.59 cm2 Pulmonary Valve PV Vmax 0.67 (0.5-1.5 m/s) RVOT Peak Gr. 0.37 mmHg PV Peak Grad 1.8 mmHg RVOT Mean Gr. 0.20 mmHg PV Mean Grad 1.1 mmHg RVOT VTI 0.054 m PV VTI 0.122 m RVOT Vmax 0.31 m/s Tricuspid Valve TR Peak Grad 29.4 mmHg TR Vmax 2.71 m/s RA Pressure 8.00 mmHg RVSP (TR) 37.4 mmHg
--- NOTE | 2022-05-08 10:13 | PDOC.CMIN ---
- If Service Date Differs Date of service: 05/08/22 Time of Service: 10:13 Care Management Initial Assess REASON FOR HOSPITALIZATION:: Pulmonary Edema, Hypoxic respiratory failure PAST MEDICAL HISTORY/PAST SURGICAL HISTORY:: All Active Problems. Acute hyperglycemia (Acute). Hypernatremia (Acute). HTN (hypertension) (Chronic). Pericardial effusion (Acute). Acute hypoxemic respiratory failure (Acute). Pulmonary edema (Acute). Pleural effusion (Acute). Medical History. Substance abuse in remission PREVIOUS FUNCTIONAL STATUS/SOCIAL/FAMILY SUPPORTS:: Lien lives in [facility] with her s/o, Julian. She has two children, Marion and Igor, and five grandchildren, who all live in the [place] area. Lien recently moved to [facility] to live with Julian. Her first about eight years ago. She is disabled, but is independent at baseline with ADL's. CURRENT FUNCTIONAL STATUS:: Lien was lying in bed when CM met with her. She discussed how her eight years ago, and she is now with a family friend, for about three years. She stated that she struggles with her children not understanding that she is in a relationship. She reported that she spends about a week every month with her grandchildren, staying with her children in [place]. Her RN arrived to check her vitals, and Lien reported 10/10 pain. She stated that she is very happy with her care at [facility], but is looking forward to returning home, where she can rest better. CM will continue to follow. ADVANCE DIRECTIVES:: Not on file. CM will offer forms. Has patient been provided with info about the portal/API?: Yes Did the patient sign up for the portal?: No CODE STATUS:: Full Code INSURANCE COVERAGE / FINANCIAL ISSUES:: [employer] CURRENT HOME/COMMUNITY SERVICES/EQUIPMENT:: None. PRIMARY CARE PHYSICIAN:: No local PCP. CM will set up PCP follow up with donkey engine firer/fireman practice. POTENTIAL DISCHARGE NEEDS:: Evaluations for futher needs, follow appt with donkey engine firer/fireman PCP. PATIENT/FAMILY EDUCATION NEEDS:: Review discharge instructions and limitations, discussion of self care needs including ask me three. ANTICIPATED BARRIERS TO DISCHARGE:: None. TRANSPORTATION:: Via private vehicle by family vs RCT. PLAN:: Anticipate Lien will return home once medically cleared. She will transport via private vehicle by family vs RCT. She will follow up with the donkey engine firer/fireman PCP, and her discharge plan of care. CM will continue to follow.
[2022-05-08] MEDS: Ondansetron 4 MG/2 ML VIAL IVP ×2 (11:57→19:11)
--- NOTE | 2022-05-08 12:31 | W.CARDCONSUL ---
Date of service: 05/08/22 Time of Service: 12:31 Assessment and Plan Assessment and plan (1) Congestive heart failure due to cardiomyopathy: Status: Acute Assessment and plan: Patient has acute on chronic congestive heart failure. She has severe left ventricular dysfunction. She should be initiated on guideline directed medical therapy. Entresto if affordable should be considered. If unaffordable, then an angiotensin receptor veronica or SUREKHA inhibitor should be initiated. When congestive heart failure is cleared she should be on either bisoprolol, carvedilol, or metoprolol succinate. Efforts to achieve blood pressure control are obviously indicated. Jardiance could be considered as well if affordable. Spironolactone and a loop diuretic are indicated When congestive heart failure has become compensated, she should have an ischemic evaluation such as a pharmacologic myocardial perfusion imaging study History of Present Illness History of Present Illness Chief Complaint: Shortness of breath Narrative: This is a 61-year-old woman with limited history due to lack of medical care. Reportedly she came to the emergency room because of progressive shortness of breath dating back weeks to months. Physical examination and diagnostic studies were consistent with congestive heart failure. She was started on treatment with diuretics. She has been admitted to the hospital. An echocardiogram has been performed which shows severe global left ventricular dysfunction, EF 25% Review of Systems Narrative: The patient was not interviewed PFSH All Active Problems (Updated 05/08/22 @ 12:33 by Mckayla Rodgers MD) Congestive heart failure due to cardiomyopathy (Acute) Acute hyperglycemia (Acute) Hypernatremia (Acute) HTN (hypertension) (Chronic) Pericardial effusion (Acute) Acute hypoxemic respiratory failure (Acute) Pulmonary edema (Acute) Pleural effusion (Acute) Medical History (Updated 05/08/22 @ 12:33 by Mckayla Rodgers MD) Substance abuse in remission Social History Smoking/Tobacco Use Status: Never Smoking risk assessment performed?: Yes Alcohol Intake: never Drug use: Never Substance use type: does not use Do you feel safe at home: Yes Do you feel safe in your relationship?: Yes Exam Narrative Exam Narrative: The patient was not examined Results Last Vital Signs Temp 37.4 C 05/08/22 11:34 Pulse 95 H 05/08/22 11:34 Resp 16 05/08/22 11:34 BP 146/94 H 05/08/22 11:34 Pulse Ox 98 05/08/22 11:34 Labs 05/08/22 05:46 05/08/22 05:46 Labs: Laboratory Results - last 24 hr 05/07/22 05/07/22 05/07/22 16:11 16:11 16:11 WBC 7.85 RBC 4.86 Hgb 12.8 Hct 41.5 MCV 85 MCH 26.3 L MCHC 30.8 L RDW 15.1 H Plt Count 340 MPV 9.5 Immature Gran % 0.3 Neutrophils % 68.0 Lymphocytes % 24.1 Monocytes % 3.9 Eosinophils % 2.4 Basophils % 1.3 Nucleated RBC % 0.0 Absolute Neutrophils 5.34 Absolute Lymphocytes 1.89 Absolute Monocytes 0.31 Absolute Eosinophils 0.19 Absolute Basophils 0.10 ESR PT INR APTT D-Dimer 1111 H VBG pH VBG pCO2 VBG pO2 VBG HCO3 VBG Total CO2 VBG O2 Saturation VBG Base Excess VBG Lactate Sodium 146 H Potassium 3.7 Chloride 105 Carbon Dioxide 26.5 Anion Gap 14.5 H BUN 15 Creatinine 1.1 H Est GFR (CKD-EPI 2020) 57.88 Glucose 152 H Hemoglobin A1c Calcium 9.4 Magnesium 2.1 Total Bilirubin 0.8 Conjugated Bilirubin AST 40 H ALT 55 Alkaline Phosphatase 82 Troponin I < 50 C-Reactive Protein NT-Pro-B Natriuret Pep Total Protein 8.4 H Albumin 4.2 Triglycerides Total Cholesterol LDL Cholesterol, Calc HDL Cholesterol TSH Urine Color Urine Clarity Urine pH Ur Specific Auberry Urine Protein Urine Ketones Urine Blood Urine Nitrite Urine Bilirubin Urine Urobilinogen Ur Leukocyte Esterase Urine RBC Urine WBC Ur Epithelial Cells Urine Crystals Urine Bacteria Urine Mucus Ur Culture Indicated? Urine Glucose Urine Opiates Screen Urine Methadone Screen Ur Barbiturates Screen Ur Tricyclics Screen Ur Amphetamines Screen U Benzodiazepines Scrn Urine Cocaine Screen Ur THC Screen COVID-19 Source SARS-CoV-2 (PCR) Influenza Type A (PCR) Influenza Type B (PCR) RSV (PCR) Add-On Test Request 05/07/22 05/07/22 05/07/22 16:20 17:35 17:35 WBC RBC Hgb Hct MCV MCH MCHC RDW Plt Count MPV Immature Gran % Neutrophils % Lymphocytes % Monocytes % Eosinophils % Basophils % Nucleated RBC % Absolute Neutrophils Absolute Lymphocytes Absolute Monocytes Absolute Eosinophils Absolute Basophils ESR PT INR APTT D-Dimer VBG pH 7.43 H VBG pCO2 36 L VBG pO2 38 VBG HCO3 24 VBG Total CO2 22 L VBG O2 Saturation 72 VBG Base Excess -1 VBG Lactate Sodium Potassium Chloride Carbon Dioxide Anion Gap BUN Creatinine Est GFR (CKD-EPI 2020) Glucose Hemoglobin A1c Calcium Magnesium Total Bilirubin Conjugated Bilirubin AST ALT Alkaline Phosphatase Troponin I C-Reactive Protein NT-Pro-B Natriuret Pep 6453 H Total Protein Albumin Triglycerides Total Cholesterol LDL Cholesterol, Calc HDL Cholesterol TSH Urine Color Urine Clarity Urine pH Ur Specific Auberry Urine Protein Urine Ketones Urine Blood Urine Nitrite Urine Bilirubin Urine Urobilinogen Ur Leukocyte Esterase Urine RBC Urine WBC Ur Epithelial Cells Urine Crystals Urine Bacteria Urine Mucus Ur Culture Indicated? Urine Glucose Urine Opiates Screen Urine Methadone Screen Ur Barbiturates Screen Ur Tricyclics Screen Ur Amphetamines Screen U Benzodiazepines Scrn Urine Cocaine Screen Ur THC Screen COVID-19 Source Nasopharynx SARS-CoV-2 (PCR) Negative Influenza Type A (PCR) Negative Influenza Type B (PCR) Negative RSV (PCR) Negative Add-On Test Request 05/07/22 05/07/22 05/07/22 17:35 18:41 18:57 WBC RBC Hgb Hct MCV MCH MCHC RDW Plt Count MPV Immature Gran % Neutrophils % Lymphocytes % Monocytes % Eosinophils % Basophils % Nucleated RBC % Absolute Neutrophils Absolute Lymphocytes Absolute Monocytes Absolute Eosinophils Absolute Basophils ESR PT 11.1 H INR 1.1 APTT 23.2 D-Dimer VBG pH VBG pCO2 VBG pO2 VBG HCO3 VBG Total CO2 VBG O2 Saturation VBG Base Excess VBG Lactate 1.4 Sodium Potassium Chloride Carbon Dioxide Anion Gap BUN Creatinine Est GFR (CKD-EPI 2020) Glucose Hemoglobin A1c Calcium Magnesium Total Bilirubin Conjugated Bilirubin AST ALT Alkaline Phosphatase Troponin I < 50 C-Reactive Protein NT-Pro-B Natriuret Pep Total Protein Albumin Triglycerides Total Cholesterol LDL Cholesterol, Calc HDL Cholesterol TSH Urine Color Urine Clarity Urine pH Ur Specific Auberry Urine Protein Urine Ketones Urine Blood Urine Nitrite Urine Bilirubin Urine Urobilinogen Ur Leukocyte Esterase Urine RBC Urine WBC Ur Epithelial Cells Urine Crystals Urine Bacteria Urine Mucus Ur Culture Indicated? Urine Glucose Urine Opiates Screen Urine Methadone Screen Ur Barbiturates Screen Ur Tricyclics Screen Ur Amphetamines Screen U Benzodiazepines Scrn Urine Cocaine Screen Ur THC Screen COVID-19 Source SARS-CoV-2 (PCR) Influenza Type A (PCR) Influenza Type B (PCR) RSV (PCR) Add-On Test Request 05/07/22 05/07/22 05/08/22 21:55 21:55 00:52 WBC RBC Hgb Hct MCV MCH MCHC RDW Plt Count MPV Immature Gran % Neutrophils % Lymphocytes % Monocytes % Eosinophils % Basophils % Nucleated RBC % Absolute Neutrophils Absolute Lymphocytes Absolute Monocytes Absolute Eosinophils Absolute Basophils ESR PT INR APTT D-Dimer VBG pH VBG pCO2 VBG pO2 VBG HCO3 VBG Total CO2 VBG O2 Saturation VBG Base Excess VBG Lactate Sodium Potassium Chloride Carbon Dioxide Anion Gap BUN Creatinine Est GFR (CKD-EPI 2020) Glucose Hemoglobin A1c Calcium Magnesium Total Bilirubin Conjugated Bilirubin AST ALT Alkaline Phosphatase Troponin I C-Reactive Protein NT-Pro-B Natriuret Pep Total Protein Albumin Triglycerides Total Cholesterol LDL Cholesterol, Calc HDL Cholesterol TSH 0.40 Urine Color Yellow Urine Clarity Clear Urine pH 7.0 Ur Specific Auberry 1.015 Urine Protein Negative Urine Ketones Negative Urine Blood Trace-intact H Urine Nitrite Negative Urine Bilirubin Negative Urine Urobilinogen 0.2 Ur Leukocyte Esterase Negative Urine RBC 0-2 Urine WBC 0-2 Ur Epithelial Cells Negative Urine Crystals Negative Urine Bacteria Rare Urine Mucus Negative Ur Culture Indicated? No Urine Glucose Negative Urine Opiates Screen Positive A Urine Methadone Screen Negative Ur Barbiturates Screen Negative Ur Tricyclics Screen Negative Ur Amphetamines Screen Negative U Benzodiazepines Scrn Negative Urine Cocaine Screen Negative Ur THC Screen Negative COVID-19 Source SARS-CoV-2 (PCR) Influenza Type A (PCR) Influenza Type B (PCR) RSV (PCR) Add-On Test Request 05/08/22 05/08/22 05/08/22 00:52 00:52 00:52 WBC RBC Hgb Hct MCV MCH MCHC RDW Plt Count MPV Immature Gran % Neutrophils % Lymphocytes % Monocytes % Eosinophils % Basophils % Nucleated RBC % Absolute Neutrophils Absolute Lymphocytes Absolute Monocytes Absolute Eosinophils Absolute Basophils ESR 15 PT INR APTT D-Dimer VBG pH VBG pCO2 VBG pO2 VBG HCO3 VBG Total CO2 VBG O2 Saturation VBG Base Excess VBG Lactate Sodium Potassium Chloride Carbon Dioxide Anion Gap BUN Creatinine Est GFR (CKD-EPI 2020) Glucose Hemoglobin A1c Calcium Magnesium Total Bilirubin Conjugated Bilirubin AST ALT Alkaline Phosphatase Troponin I < 50 C-Reactive Protein 0.17 NT-Pro-B Natriuret Pep Total Protein Albumin Triglycerides Total Cholesterol LDL Cholesterol, Calc HDL Cholesterol TSH Urine Color Urine Clarity Urine pH Ur Specific Auberry Urine Protein Urine Ketones Urine Blood Urine Nitrite Urine Bilirubin Urine Urobilinogen Ur Leukocyte Esterase Urine RBC Urine WBC Ur Epithelial Cells Urine Crystals Urine Bacteria Urine Mucus Ur Culture Indicated? Urine Glucose Urine Opiates Screen Urine Methadone Screen Ur Barbiturates Screen Ur Tricyclics Screen Ur Amphetamines Screen U Benzodiazepines Scrn Urine Cocaine Screen Ur THC Screen COVID-19 Source SARS-CoV-2 (PCR) Influenza Type A (PCR) Influenza Type B (PCR) RSV (PCR) Add-On Test Request 05/08/22 05/08/22 05/08/22 05:45 05:45 05:46 WBC RBC Hgb Hct MCV MCH MCHC RDW Plt Count MPV Immature Gran % Neutrophils % Lymphocytes % Monocytes % Eosinophils % Basophils % Nucleated RBC % Absolute Neutrophils Absolute Lymphocytes Absolute Monocytes Absolute Eosinophils Absolute Basophils ESR PT INR APTT D-Dimer VBG pH VBG pCO2 VBG pO2 VBG HCO3 VBG Total CO2 VBG O2 Saturation VBG Base Excess VBG Lactate Sodium Potassium Chloride Carbon Dioxide Anion Gap BUN Creatinine Est GFR (CKD-EPI 2020) Glucose Hemoglobin A1c 5.3 Calcium Magnesium Total Bilirubin Conjugated Bilirubin AST ALT Alkaline Phosphatase Troponin I < 50 C-Reactive Protein NT-Pro-B Natriuret Pep Total Protein Albumin Triglycerides Total Cholesterol LDL Cholesterol, Calc HDL Cholesterol TSH Urine Color Urine Clarity Urine pH Ur Specific Auberry Urine Protein Urine Ketones Urine Blood Urine Nitrite Urine Bilirubin Urine Urobilinogen Ur Leukocyte Esterase Urine RBC Urine WBC Ur Epithelial Cells Urine Crystals Urine Bacteria Urine Mucus Ur Culture Indicated? Urine Glucose Urine Opiates Screen Urine Methadone Screen Ur Barbiturates Screen Ur Tricyclics Screen Ur Amphetamines Screen U Benzodiazepines Scrn Urine Cocaine Screen Ur THC Screen COVID-19 Source SARS-CoV-2 (PCR) Influenza Type A (PCR) Influenza Type B (PCR) RSV (PCR) Add-On Test Request DONE 05/08/22 05/08/22 05/08/22 05:46 05:46 05:46 WBC 7.01 RBC 3.87 L Hgb 10.3 L D Hct 32.7 L MCV 85 MCH 26.6 L MCHC 31.5 L RDW 14.7 H Plt Count 249 MPV 9.8 Immature Gran % Neutrophils % Lymphocytes % Monocytes % Eosinophils % Basophils % Nucleated RBC % Absolute Neutrophils Absolute Lymphocytes Absolute Monocytes Absolute Eosinophils Absolute Basophils ESR PT 11.3 H INR 1.1 APTT D-Dimer VBG pH VBG pCO2 VBG pO2 VBG HCO3 VBG Total CO2 VBG O2 Saturation VBG Base Excess VBG Lactate Sodium 144 Potassium 3.3 L Chloride 105 Carbon Dioxide 26.4 Anion Gap 12.6 H BUN 14 Creatinine 0.9 Est GFR (CKD-EPI 2020) 73.64 Glucose 129 H Hemoglobin A1c Calcium 8.8 Magnesium 1.9 Total Bilirubin 0.7 Conjugated Bilirubin 0.2 AST 25 ALT 38 Alkaline Phosphatase 68 Troponin I C-Reactive Protein NT-Pro-B Natriuret Pep 45926 H Total Protein 6.8 Albumin 3.3 L Triglycerides 39 Total Cholesterol 170 LDL Cholesterol, Calc 112 H HDL Cholesterol 51 TSH Urine Color Urine Clarity Urine pH Ur Specific [place] Urine Protein Urine Ketones Urine Blood Urine Nitrite Urine Bilirubin Urine Urobilinogen Ur Leukocyte Esterase Urine RBC Urine WBC Ur Epithelial Cells Urine Crystals Urine Bacteria Urine Mucus Ur Culture Indicated? Urine Glucose Urine Opiates Screen Urine Methadone Screen Ur Barbiturates Screen Ur Tricyclics Screen Ur Amphetamines Screen U Benzodiazepines Scrn Urine Cocaine Screen Ur THC Screen COVID-19 Source SARS-CoV-2 (PCR) Influenza Type A (PCR) Influenza Type B (PCR) RSV (PCR) Add-On Test Request
--- NOTE | 2022-05-08 15:15 | RT.EKG_ITS ---
APPROVED REPORT Exam: Resting ECG Reason for Exam: possible st depression Patient Location: I HR:82 bpm ECG Measurements Heart Rate 82 AXIS MD 162 P 67 QRSd 92 QRS -20 QT 413 T 247 QTc 483 Conclusion Sinus rhythm...normal P axis, V-rate 50- 99 Probable left atrial enlargement...P >50mS, <-0.10mV V1 LVH with secondary repolarization abnormality...multi-LVH criteria, abnrm ST-T
[2022-05-08 17:00] LABS: Troponin I < 50 ng/L (<or=60)
[2022-05-08] MEDS: Pantoprazole 40 MG TABCR PO (18:29)
[2022-05-08] MEDS: Aspirin E.C. 325 MG TABEC PO (18:30)
--- NOTE | 2022-05-08 18:40 | W.PM.PROGNOT ---
Date of Service Date of service: 05/08/22 Time of Service: 18:40 Assessment and Plan Assessment and plan (1) Congestive heart failure due to cardiomyopathy: Status: Acute Assessment and plan: LVEF 20-25% with global hypokinesis on echo. Cause of hypoxia. Continue diuresis. Will investigate coverage for entresto, jardiance. Add aldactone. Would hold off of beta blockers for now. Will need ischemic workup. Continue to monitor on tele. Wean O2 as tolerated. Monitor Cr, I/Os, daily weights. (2) Acute hypoxemic respiratory failure: Start date: 05/07/22 Status: Acute Assessment and plan: Diurese. Wean O2 as tolerated. (3) Pleural effusion: Start date: 05/07/22 Status: Acute Assessment and plan: Due to CHF. As above (4) Pericardial effusion: Start date: 05/07/22 Status: Acute Assessment and plan: Due to CHF As above (5) HTN (hypertension): Status: Chronic Assessment and plan: Being initiated on aldactone. Once CHF better, would introduce BB. 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 Await HIV and hepatitis studies. (7) Hypernatremia: Start date: 05/07/22 Status: Acute Assessment and plan: The patient should drink water while we are diuresing her to hopefully offset her sodiu, (8) Acute hyperglycemia: Start date: 05/07/22 Status: Resolved Assessment and plan: A1C is 5.3%. No evidence that the patient has diabetes at this time. (9) Acute electrocardiogram changes: Status: Acute Assessment and plan: Await repeat troponins and EKGs. Start asa. Will discuss with cardiology (10) Musculoskeletal chest pain: Status: Acute Assessment and plan: prn tylenol (11) Gastritis: Status: Acute Assessment and plan: Start PPI, carafate. Provide antiemetics. (12) Anxiety: Status: Chronic Assessment and plan: prn lorazepam (13) Constipation: Status: Acute Assessment and plan: Provide a bowel regimen (14) DVT prophylaxis: Status: Acute Assessment and plan: SC enoxaparin (15) Discharge planning issues: Status: Acute Assessment and plan: Full code Continues to require hospitalization. Subjective Subjective Interval history since last seen: Ms Keene reports shortness of breath, cough (nonproductive), nausea. Her reports n/v at home - frequently. Anxiety is an issue. Dizziness and nausea reported here today as well. Chest pain has been happening x 3 months, constant, worse with coughing and with palpation. Also reports epigastric pain. Constipated x 4 days. Would like her georges catheter out - it is irritating her. Exam Narrative Exam Narrative: General: Pleasant anxious female, A&Ox3, tearful, on 1L of O2 by NC HEENT: EOMI, MMM Heart: RRR, no m/r/g Lungs: Diminished breath sounds at B bases Abdomen: soft, nontender, nondistended Extremities: trace edema BLEs Objective Last Vital Signs Temp 37.2 C 05/08/22 15:45 Pulse 96 H 05/08/22 15:45 Resp 18 05/08/22 15:45 BP 119/68 05/08/22 15:45 Pulse Ox 99 05/08/22 15:45 Laboratory Results - last 24 hr 05/07/22 05/07/22 05/07/22 18:41 18:57 21:55 WBC RBC Hgb Hct MCV MCH MCHC RDW Plt Count MPV ESR PT 11.1 H INR 1.1 APTT 23.2 Sodium Potassium Chloride Carbon Dioxide Anion Gap BUN Creatinine Est GFR (CKD-EPI 2020) Glucose Hemoglobin A1c Calcium Magnesium Total Bilirubin Conjugated Bilirubin AST ALT Alkaline Phosphatase Troponin I < 50 C-Reactive Protein NT-Pro-B Natriuret Pep Total Protein Albumin Triglycerides Total Cholesterol LDL Cholesterol, Calc HDL Cholesterol TSH Urine Color Yellow Urine Clarity Clear Urine pH 7.0 Ur Specific [place] 1.015 Urine Protein Negative Urine Ketones Negative Urine Blood Trace-intact H Urine Nitrite Negative Urine Bilirubin Negative Urine Urobilinogen 0.2 Ur Leukocyte Esterase Negative Urine RBC 0-2 Urine WBC 0-2 Ur Epithelial Cells Negative Urine Crystals Negative Urine Bacteria Rare Urine Mucus Negative Ur Culture Indicated? No Urine Glucose Negative Urine Opiates Screen Urine Methadone Screen Ur Barbiturates Screen Ur Tricyclics Screen Ur Amphetamines Screen U Benzodiazepines Scrn Urine Cocaine Screen Ur THC Screen Add-On Test Request 05/07/22 05/08/22 05/08/22 21:55 00:52 00:52 WBC RBC Hgb Hct MCV MCH MCHC RDW Plt Count MPV ESR PT INR APTT Sodium Potassium Chloride Carbon Dioxide Anion Gap BUN Creatinine Est GFR (CKD-EPI 2020) Glucose Hemoglobin A1c Calcium Magnesium Total Bilirubin Conjugated Bilirubin AST ALT Alkaline Phosphatase Troponin I C-Reactive Protein 0.17 NT-Pro-B Natriuret Pep Total Protein Albumin Triglycerides Total Cholesterol LDL Cholesterol, Calc HDL Cholesterol TSH 0.40 Urine Color Urine Clarity Urine pH Ur Specific [place] Urine Protein Urine Ketones Urine Blood Urine Nitrite Urine Bilirubin Urine Urobilinogen Ur Leukocyte Esterase Urine RBC Urine WBC Ur Epithelial Cells Urine Crystals Urine Bacteria Urine Mucus Ur Culture Indicated? Urine Glucose Urine Opiates Screen Positive A Urine Methadone Screen Negative Ur Barbiturates Screen Negative Ur Tricyclics Screen Negative Ur Amphetamines Screen Negative U Benzodiazepines Scrn Negative Urine Cocaine Screen Negative Ur THC Screen Negative Add-On Test Request 05/08/22 05/08/22 05/08/22 00:52 00:52 05:45 WBC RBC Hgb Hct MCV MCH MCHC RDW Plt Count MPV ESR 15 PT INR APTT Sodium Potassium Chloride Carbon Dioxide Anion Gap BUN Creatinine Est GFR (CKD-EPI 2020) Glucose Hemoglobin A1c Calcium Magnesium Total Bilirubin Conjugated Bilirubin AST ALT Alkaline Phosphatase Troponin I < 50 C-Reactive Protein NT-Pro-B Natriuret Pep Total Protein Albumin Triglycerides Total Cholesterol LDL Cholesterol, Calc HDL Cholesterol TSH Urine Color Urine Clarity Urine pH Ur Specific [place] Urine Protein Urine Ketones Urine Blood Urine Nitrite Urine Bilirubin Urine Urobilinogen Ur Leukocyte Esterase Urine RBC Urine WBC Ur Epithelial Cells Urine Crystals Urine Bacteria Urine Mucus Ur Culture Indicated? Urine Glucose Urine Opiates Screen Urine Methadone Screen Ur Barbiturates Screen Ur Tricyclics Screen Ur Amphetamines Screen U Benzodiazepines Scrn Urine Cocaine Screen Ur THC Screen Add-On Test Request DONE 05/08/22 05/08/22 05/08/22 05:45 05:46 05:46 WBC RBC Hgb Hct MCV MCH MCHC RDW Plt Count MPV ESR PT INR APTT Sodium 144 Potassium 3.3 L Chloride 105 Carbon Dioxide 26.4 Anion Gap 12.6 H BUN 14 Creatinine 0.9 Est GFR (CKD-EPI 2020) 73.64 Glucose 129 H Hemoglobin A1c 5.3 Calcium 8.8 Magnesium 1.9 Total Bilirubin 0.7 Conjugated Bilirubin 0.2 AST 25 ALT 38 Alkaline Phosphatase 68 Troponin I < 50 C-Reactive Protein NT-Pro-B Natriuret Pep 43167 H Total Protein 6.8 Albumin 3.3 L Triglycerides 39 Total Cholesterol 170 LDL Cholesterol, Calc 112 H HDL Cholesterol 51 TSH Urine Color Urine Clarity Urine pH Ur Specific [place] Urine Protein Urine Ketones Urine Blood Urine Nitrite Urine Bilirubin Urine Urobilinogen Ur Leukocyte Esterase Urine RBC Urine WBC Ur Epithelial Cells Urine Crystals Urine Bacteria Urine Mucus Ur Culture Indicated? Urine Glucose Urine Opiates Screen Urine Methadone Screen Ur Barbiturates Screen Ur Tricyclics Screen Ur Amphetamines Screen U Benzodiazepines Scrn Urine Cocaine Screen Ur THC Screen Add-On Test Request 05/08/22 05/08/22 05/08/22 05:46 05:46 16:30 WBC 7.01 RBC 3.87 L Hgb 10.3 L D Hct 32.7 L MCV 85 MCH 26.6 L MCHC 31.5 L RDW 14.7 H Plt Count 249 MPV 9.8 ESR PT 11.3 H INR 1.1 APTT Sodium Potassium Chloride Carbon Dioxide Anion Gap BUN Creatinine Est GFR (CKD-EPI 2020) Glucose Hemoglobin A1c Calcium Magnesium Total Bilirubin Conjugated Bilirubin AST ALT Alkaline Phosphatase Troponin I < 50 C-Reactive Protein NT-Pro-B Natriuret Pep Total Protein Albumin Triglycerides Total Cholesterol LDL Cholesterol, Calc HDL Cholesterol TSH Urine Color Urine Clarity Urine pH Ur Specific [place] Urine Protein Urine Ketones Urine Blood Urine Nitrite Urine Bilirubin Urine Urobilinogen Ur Leukocyte Esterase Urine RBC Urine WBC Ur Epithelial Cells Urine Crystals Urine Bacteria Urine Mucus Ur Culture Indicated? Urine Glucose Urine Opiates Screen Urine Methadone Screen Ur Barbiturates Screen Ur Tricyclics Screen Ur Amphetamines Screen U Benzodiazepines Scrn Urine Cocaine Screen Ur THC Screen Add-On Test Request Objective Narrative Objective Narrative: EKG: NSR, HR 88, inferior T wave inversions are new Echo: Normal left ventricular wall thickness and chamber size.? Estimated ejection fraction is 25%.? There is global hypokinesis Right ventricle appears normal in size, hypocontractile Normal right atrial size.? Left atrium is moderately dilated Aortic valve is trileaflet and mildly sclerotic with trace regurgitation Normal mitral valve with moderate mitral regurgitation Normal tricuspid valve with mild regurgitation.? Estimated right ventricular systolic pressure is 37 mmHg Trivial pericardial effusion Time Spent with Patient Time Spent with Patient: 35-49 minutes Time was spent: preparing to see the patient(eg.review tests), obtaining and/or reviewing separately otained hiistory, ordering medications,tests, procedures, referring, communicating with other health rn progressive care unit, indepentently interpreting results, counseling the patient and care coordination
[2022-05-08] MEDS: LORazepam 0.5 MG TAB PO (19:10)
[2022-05-08 19:45] LABS: Anion Gap 6.2 mmol/L (3-11); BUN 22 mg/dL (7-18); CO2 34.8 mmol/L (21.0-32.0); CREATININE 1.4 mg/dL (0.55-1.02); Calcium 9.1 mg/dL (8.5-10.1); Chloride 101 mmol/L (98-107); Estimated GFR 43.34 (mL/min/1.73m2); Glucose 129 mg/dL (74-106); Potassium 3.6 mmol/L (3.5-5.1); Sodium 142 mmol/L (136-145)
[2022-05-08 19:53] LABS: Troponin I < 50 ng/L (<or=60)
[2022-05-08] MEDS: Docusate Sodium 100 MG CAP PO (20:44)
[2022-05-08] MEDS: Polyethylene Glycol 3350 17 GM PACKET PO (20:44)
[2022-05-08] MEDS: Atorvastatin 40 MG TAB PO (20:44)
[2022-05-08] MEDS: Normal Saline Flush 10 ML SYR IVP (20:45)
[2022-05-08] MEDS: Enoxaparin 40 MG/0.4 ML SYR SC (21:56)
[2022-05-08] MEDS: Sucralfate 1 GM TAB PO (21:57)
[2022-05-09] VITALS (10 sets, daily range): BP systolic 118–131; BP diastolic 70–88; PULSE 73–89; RESP 12–18; TEMP 36.3–37.4; O2SAT 92–98
[2022-05-09 07:00] LABS: Anion Gap 7.1 mmol/L (3-11); BUN 23 mg/dL (7-18); CO2 31.9 mmol/L (21.0-32.0); CREATININE 1.3 mg/dL (0.55-1.02); Calcium 8.6 mg/dL (8.5-10.1); Chloride 103 mmol/L (98-107); Estimated GFR 47.37 (mL/min/1.73m2); Glucose 89 mg/dL (74-106); Potassium 3.9 mmol/L (3.5-5.1); Sodium 142 mmol/L (136-145)
--- NOTE | 2022-05-09 07:45 | RT.EKG_ITS ---
APPROVED REPORT Exam: Resting ECG Reason for Exam: ekg changes Patient Location: I HR:92 bpm ECG Measurements Heart Rate 92 AXIS MS 146 P 57 QRSd 109 QRS -19 QT 378 T -84 QTc 468 Conclusion Sinus rhythm...normal P axis, V-rate 50- 99 Ventricular premature complex...V complex w/ short R-R interval LVH with secondary repolarization abnormality...multi-LVH criteria, abnrm ST-T Artifact in lead(s) I,II,III,aVR,aVL,aVF,V2
[2022-05-09] MEDS: Aspirin E.C. 81 MG TABEC PO (08:40)
[2022-05-09] MEDS: Pantoprazole 40 MG TABCR PO (08:40)
[2022-05-09] MEDS: Sucralfate 1 GM TAB PO ×4 (08:40→20:01)
[2022-05-09] MEDS: LORazepam 0.5 MG TAB PO ×2 (08:40→21:05)
[2022-05-09] MEDS: Docusate Sodium 100 MG CAP PO (08:40)
[2022-05-09] MEDS: Spironolactone 25 MG TAB PO (08:41)
[2022-05-09] MEDS: Milk of Magnesia 30 ML CUP PO (08:41)
[2022-05-09] MEDS: Normal Saline Flush 10 ML SYR IVP (08:41)
[2022-05-09] MEDS: Polyethylene Glycol 3350 17 GM PACKET PO (08:41)
[2022-05-09] MEDS: Furosemide 40 MG/4 ML VIAL IVP ×2 (08:41→16:25)
[2022-05-09 10:31] LABS: HIV-1/2 Ag & Ab Screen Negative (Negative)
[2022-05-09 10:39] LABS: Hepatitis C Ab w Rflx HCV PCR Reactive (Negative)
--- NOTE | 2022-05-09 12:00 | RT.EKG_ITS ---
APPROVED REPORT Exam: Resting ECG Reason for Exam: REPEAT Patient Location: I HR:83 bpm ECG Measurements Heart Rate 83 AXIS RI 153 P 45 QRSd 90 QRS -17 QT 379 T 31 QTc 446 Conclusion Sinus rhythm...normal P axis, V-rate 50- 99 Probable left atrial enlargement...P >50mS, <-0.10mV V1 Left ventricular hypertrophy with repolarization abnormalities Similar to previous
--- NOTE | 2022-05-09 14:13 | IN_ITS ---
PT Notes Visit Reasons: Pulmonary Edema,Hypoxic Respiratory Failure Inpatient Physical Therapy Evaluation Date: 05/09/2022 Referring Doctor: Dr. Omalley PT Orders: PT CONSULT: Evaluate Precautions: Falls Patient Profile/Admitting Diagnosis: 61-year-old female recently admitted with CHF due to cardiomyopathy. PMHX: PFSH All Active Problems?(Updated 05/07/22 @ 22:45 by Power Ward) Acute hyperglycemia (Acute) Hypernatremia (Acute) HTN (hypertension) (Chronic) Pericardial effusion (Acute) Acute hypoxemic respiratory failure (Acute) Pulmonary edema (Acute) Pleural effusion (Acute) Medical History?(Updated 05/07/22 @ 22:45 by Power Ward) Substance abuse in remission Social History/Home Situation: Lives with her significant other of 8 years in a ground-floor apartment with a couple steps entering the building. She has no adaptive equipment in the bathroom, but does not have difficulty with bathing etc. Current Functional Limitations: She is independent with all ADLs other than driving, but does grocery shop with significant other, makes all meals and assist with household duties. Equipment Owned/DME: None mention Subjective: Patient complains of occasional clicking sensation throughout the right knee but nonpainful. She states that her knees will occasionally buckle but does not fallen. Objective: General Observation: Pleasant, cooperative and no abnormal pain behavior noted Mental Status: Alert and oriented x3 Pain: None mentioned Vital Signs: Resting O2 sat is 100% and pulse is 89 bpm; after ambulation O2 sat is 99% and pulse is 107 bpm. No complaints of shortness of breath etc. ROM: Active assistive range of motion of the articular structures are full and painless including the right knee. Right knee examination shows negative effusion, erythema or warmth, negative Joce's or drawer sign, negative laxity with valgus varus stress. She has good patella movement and negative patellofemoral compression although associated with mild crepitation. She is nontender throughout the joint lines. Strength: She has full volitional movement throughout and her strength is generally rated -5/5 Neuro: Reflexes symmetrical, sensations intact and she has full motor control Bed Mobility/Transfers: She is independent with assuming the supine to sitting to standing positions and vice versa. She initially wavers when she is standing and requires some contact guarding. Gait: She ambulated approximately 150 feet with minimal contact guarding, had occasional buckling of her knees without loss of balance. Other times she will walk with normal gait mechanics and was able to walk on her heels and toes with some mild contact guarding. Balance: Static Sitting: NormalDynamic Sitting: Normal Static Standing: Standby supervision Dynamic Standing: Minimal contact guarding Patient was able to pick an object off the floor without loss of balance, her unilateral standing balance was less than 3 seconds, she was able to heel toe gait with minimal contact guarding Special Tests: Mobility Limitations Standardized Measure [facility] AM-PAC 6 clicks Basic Mobility Inpatient Short Form: Raw Score: 19 standardized Score: 3.55 CMS Score: 41.77 Informed Consent/Education: Patient instructed in purpose of PT consult and plan of care. Assessment: Patient is a 61year old female referred to physical therapy services with the diagnosis of CHF with cardiomyopathy. Patient presents with clinical signs and symptoms consistent with this diagnosis, as demonstrated by the following impairment level findings: Minimal change with her vitals or dyspnea with ambulation although she had inconsistent stability with occasional buckling but without loss of balance. She notes that she does not use a cane or walker and has no interest in doing so, but while she is in the hospital we will focus on some lower extremity strengthening exercises with emphasis on the quadriceps mechanism.. Impairments are contributing to the following functional limitations: AMPAC score. Patient is assessed as a moderate 80473 complexity based on the following: History: See comorbidities and social history Examination: See above for functional limitations and impairments Presentation: Evolving Decision Making: Moderate complexity based on her clinical findings Goals: Goals X1 week Increase lower extremity strength and improve gait stability to minimize fall risk Plan of Care/Treatment Plan: Instructed patient in independent program consisting of supine straight leg raises, antigravity extension exercises on the edge of the bed, and modified wall squats against the wall not to exceed 30 degrees. Encouraged her to walk in the hallway with supervision. 1-2x/day, 7 days/week x 1 week. Plan of care has been reviewed with the [employer]CRE[employer] providing the service under Physical Therapy direction. Initiate Physical Therapy intervention for strengthening, bed mobility, transfers, gait, stairs, balance training, DISCHARGE RECOMMENDATIONS: Home with no services TREATMENT CODE/TIME: 9716 Disclaimer: This note was created using [employer] it [employer] voice recognition software. It was reviewed for major content. However, there may be multiple small discrepancies and errors due to the voice recognition aspects of the software.
--- NOTE | 2022-05-09 15:52 | PDOC.CMPRO ---
- If Service Date Differs Date of service: 05/09/22 Time of Service: 15:52 Care Management Progress Note S/O: Lien was sitting up in bed when CM met with her. She stated that she is doing ok today, but is looking forward to returning home, hopefully soon. She stated that per MD, they would be reaching out to [facility] to consult with cardiology. Lien worked with PT today, which she reported went well. CM will continue to follow. A: Lien is a 61 year old female admitted to [facility] on 05/07/22 with pulmonary edema, hypoxic respiratory failure. P: Anticipate Lien will return home once medically cleared. She will transport via private vehicle by family vs [facility]. She will follow up with the office professionals PCP, and her discharge plan of care. CM will continue to follow.
--- NOTE | 2022-05-09 17:46 | PGE_ITS ---
Date of Service Date of service: 05/09/22 Time of Service: 17:46 Assessment and Plan Assessment and plan (1) Congestive heart failure due to cardiomyopathy: Status: Acute Assessment and plan: LVEF 20-25% with global hypokinesis on echo. Cause of hypoxia. Hypoxia has resolved. Switch to PO furosemide. Continue aldactone. Ok to start long acting metoprolol. I did also add aspirin. Will investigate coverage for entresto, jardiance. Will need ischemic workup - discussed with Dr Rodgers - as outpatient is ok. EKG changes are not c/w ischemia. Continue to monitor on tele. Monitor Cr, I/Os, daily weights. (2) Acute hypoxemic respiratory failure: Start date: 05/07/22 Status: Resolved Assessment and plan: Diurese. Wean O2 as tolerated. (3) Leg weakness, bilateral: Status: Acute Assessment and plan: Concern for cord compression/cauda equina/neuropathy. Obtain MRI lumbar spine. PT consulted. Consult neurology. Obtain b12 level. I cannot rule out a psychogenic component at this time. (4) Back pain: Status: Acute Assessment and plan: Obtain an MRI of lumbar spine to ensure no cord compression. The patient reports chronic back pain, chronic leg weakness, a h/o repeated falls at home. Check B12 level. Obtain a neurology consulted. PT consulted. (5) Pleural effusion: Start date: 05/07/22 Status: Acute Assessment and plan: Due to CHF. As above (6) Pericardial effusion: Start date: 05/07/22 Status: Acute Assessment and plan: Due to CHF As above (7) HTN (hypertension): Status: Chronic Assessment and plan: Add metoprolol to aldactone. (8) Substance abuse in remission: Assessment and plan: IVD in remission. Hep C antibody reactive. Viral load pending. Given high anxiety and a discussion about the back pain, need for MRI, rectal exam today, We did not broach the subject of this test today. HIV negative. (9) Hypernatremia: Start date: 05/07/22 Status: Resolved Assessment and plan: monitor while diuresing. (10) Acute hyperglycemia: Start date: 05/07/22 Status: Resolved Assessment and plan: A1C is 5.3%. No evidence that the patient has diabetes at this time. (11) Acute electrocardiogram changes: Status: Acute Assessment and plan: Disucssed with Dr Rodgers, who did not feel that the EKG changes represented acute ischemia, necessarily. She did not feel that the EKGs looked that different from the admission. She felt that this was due to LVH. She recommended an outpatient MPI stress test when the patient was more diuresed. Continue asa. (12) Musculoskeletal chest pain: Status: Acute Assessment and plan: prn tylenol (13) Gastritis: Status: Acute Assessment and plan: Continue PPI, carafate. Provide antiemetics. (14) Anxiety: Status: Chronic Assessment and plan: prn lorazepam (15) Constipation: Status: Acute Assessment and plan: Patient did have a BM today. Provide a bowel regimen (16) DVT prophylaxis: Status: Acute Assessment and plan: SC enoxaparin (17) Discharge planning issues: Status: Acute Assessment and plan: Full code Continues to require hospitalization. Subjective Subjective Interval history since last seen: Breathing is not better - the patient states that's because she choked on her potassium pill this morning and had a hard time catching her breath afterwards. She is still coughing. Reports chest pain in the center of her chest. No nausea or vomiting today. Reports episodes of dizziness (at home) and falls but attributes them to her leg weakness. This morning reported to the nurses that her feet stopped working. This happens at home too and has been going on for 5 years. Lower back pain is chronic. Has never had an MRI. The patient denies saddle anesthesia, but at the same time does report having difficulty feeling if she is going to the bathroom right now (she is sitting on the commode). Describes B hip pain as well. No numbness/tingling. Thighs hurt. Never a smoker. Exam Narrative Exam Narrative: General: Pleasant anxious female, A&Ox3, on RA, looks better HEENT: EOMI, MMM Heart: RRR, no m/r/g Lungs: Faint crackles at R base Abdomen: soft, nontender, nondistended : weakened rectal tone Extremities: no edema BLEs Objective Last Vital Signs Temp 36.7 C 05/09/22 15:25 Pulse 80 05/09/22 15:43 Resp 16 05/09/22 15:25 BP 131/88 05/09/22 15:25 Pulse Ox 97 05/09/22 15:25 Laboratory Results - last 24 hr 05/07/22 05/07/22 05/08/22 17:35 17:35 19:25 Sodium Potassium Chloride Carbon Dioxide Anion Gap BUN Creatinine Est GFR (CKD-EPI 2020) Glucose Calcium Magnesium Troponin I < 50 Hepatitis C Antibody Reactive A HIV 1&2 Ag/Ab, 4th Gen Negative 05/08/22 05/09/22 19:25 06:15 Sodium 142 142 Potassium 3.6 3.9 Chloride 101 103 Carbon Dioxide 34.8 H 31.9 Anion Gap 6.2 7.1 BUN 22 H 23 H Creatinine 1.4 H 1.3 H Est GFR (CKD-EPI 2020) 43.34 47.37 Glucose 129 H 89 Calcium 9.1 8.6 Magnesium 2.0 Troponin I Hepatitis C Antibody HIV 1&2 Ag/Ab, 4th Gen Time Spent with Patient Time Spent with Patient: 35-49 minutes Time was spent: preparing to see the patient(eg.review tests), obtaining and/or reviewing separately otained hiistory, ordering medications,tests, procedures, referring, communicating with other health long term care phlebotomist, indepentently interpreting results, counseling the patient and care coordination
[2022-05-09] MEDS: Atorvastatin 40 MG TAB PO (20:00)
[2022-05-09] MEDS: Enoxaparin 40 MG/0.4 ML SYR SC (21:05)
[2022-05-10] VITALS (11 sets, daily range): BP systolic 112–128; BP diastolic 50–89; PULSE 70–93; RESP 16–18; TEMP 36.5–36.9; O2SAT 96–99
[2022-05-10 06:38] LABS: Abs Immature Grans 0.03 10^3/uL (0.0-0.06); Absolute Basophil Count 0.07 10^3/uL (0.0-0.2); Absolute Eosinophil Count 0.29 10^3/uL (0.0-0.7); Absolute Lymphocyte Count 2.28 10^3/uL (1.2-3.4); Absolute Monocyte Count 0.58 10^3/uL (0.1-0.8); Absolute Neutrophil Count 4.22 10^3/uL (1.2-6.7); Basophils % 0.9; Eosinophils % 3.9; HCT 36.9 % (36.0-46.0); HGB 11.6 g/dL (11.2-15.7); Immature Grans % 0.4; Lymphocytes % 30.5; MCH 26.8 pg (27.0-33.0); MCHC 31.4 % (32.0-36.0); MCV 85 fL (80-95); MPV 9.5 fL (8.0-11.0); Monocytes % 7.8; Neutrophils % 56.5; Platelet Count 290 10^3/uL (130-400); RBC 4.33 10^6/uL (3.93-5.22); RDW 14.6 % (11.7-14.6); RDW-SD 45.7 fL; WBC 7.47 10^3/uL (4.4-10.8)
[2022-05-10 07:03] LABS: Anion Gap 5.7 mmol/L (3-11); BUN 22 mg/dL (7-18); CO2 36.3 mmol/L (21.0-32.0); CREATININE 1.2 mg/dL (0.55-1.02); Calcium 8.9 mg/dL (8.5-10.1); Chloride 102 mmol/L (98-107); Estimated GFR 52.14 (mL/min/1.73m2); Glucose 99 mg/dL (74-106); Magnesium 2.4 mg/dL (1.8-2.4); Potassium 3.6 mmol/L (3.5-5.1); Sodium 144 mmol/L (136-145)
[2022-05-10 07:33] LABS: Vitamin B12 742 pg/mL (193-986)
[2022-05-10] MEDS: Aspirin E.C. 81 MG TABEC PO (07:48)
[2022-05-10] MEDS: Metoprolol CR 25 MG TABCR PO (07:48)
[2022-05-10] MEDS: Sucralfate 1 GM TAB PO ×4 (07:48→21:16)
[2022-05-10] MEDS: Pantoprazole 40 MG TABCR PO (07:48)
[2022-05-10] MEDS: Polyethylene Glycol 3350 17 GM PACKET PO (07:49)
[2022-05-10] MEDS: Furosemide 40 MG TAB 20 MG PO ×2 (07:49→15:50)
[2022-05-10] MEDS: Spironolactone 25 MG TAB PO (07:49)
[2022-05-10] MEDS: Normal Saline Flush 10 ML SYR IVP (07:49)
[2022-05-10] MEDS: Docusate Sodium 100 MG CAP PO ×2 (07:49→19:53)
--- NOTE | 2022-05-10 08:00 | DI.MRI_ITS ---
Exam(s) MR LUMBAR SPINE WO EXAM: MR LUMBAR SPINE WO CLINICAL HISTORY: back pain, leg weakness. TECHNIQUE: Multiplanar multisequence MRI of the Lumbar spine was performed. COMPARISON: CT CT CHEST PE CTA from 05/07/[address] CHEST/ABD/PEL WO from 05/07/2022 FINDINGS: Bones: The last intervertebral disc space is designated the L5/S1 level for the numbering purpose of this examination. There is a rudimentary disc at L5-S1. The vertebral body heights are well maintai connie. Alignment is satisfactory. The marrow signal characteristics are unremarkable. Cord: The conus tip ends at the L1-2 level. It is of normal size and signal intensity. T12-L1: No disc herniations or bulges are present. No central spinal canal or neural foraminal stenos is. L1-2: Mild disc bulging. Anteriorly projecting osteophytes. No central spinal canal or neural johnson inal stenosis. L2-3: Broad-based disc bulging, greater laterally, encroaching into the neural foramen, small combini ng with facet degenerative changes to produce severe right neural foraminal narrowing. L3-4: Mild disc bulging. Facet degenerative changes encroaching into the right neural foramen, causi ng moderate stenosis. L4-5: Disc bulging eccentric toward the left projecting into the left neural foramen causing mild simon nosis. L5-S1: Rudimentary disc. severe left neural foraminal narrowing. The visualized SI joints and sacrum are well maintained. Soft tissues: Left renal cyst. The paraspinal soft tissues are unremarkable. IMPRESSION: Severe right neural foraminal narrowing at L2-3. Moderate right neural foraminal narrowing at L3-4. Rudimentary disc at L5-S1. Severe left neural foraminal narrowing. DATA REPOSITORY:
--- NOTE | 2022-05-10 08:00 | DI.RAD_ITS ---
Exam(s) XR HIP PELVIS ADULT BL EXAM: XR HIP PELVIS ADULT BL CLINICAL HISTORY: chronic bilateral hip pain. TECHNIQUE: 2D digital imaging was performed. Three views. COMPARISON: No exams were available for comparison FINDINGS: BONES: No acute fracture is present. No bony destructive lesion is seen. JOINTS: No dislocation present. No significant degenerative changes. SOFT TISSUE: Normal. IMPRESSION: Unremarkable radiographs of bilat hips. DATA REPOSITORY: RADIATION DOSE DELIVERED:
[2022-05-10 11:13] LABS: HCV RNA Detection Quantitative 4320000 IU/mL (Undetected); HCV RNA Qualitative Detected (Undetected)
[2022-05-10] MEDS: LORazepam 2 MG/ML VIAL 0.5 MG IVP (11:17)
--- NOTE | 2022-05-10 13:50 | PT.INTREAT ---
Date of service: 05/10/22 Time of Service: 12:45 PT Notes Visit Reasons: Pulmonary Edema,Hypoxic Respiratory Failure Inpatient Physical Therapy Treatment Note [facility] Date: 05/10/2022 SUBJECTIVE: Lien is pleasant and agreeable to participating in PT. She reports that she continues to have pain in B hips, which she reports is limiting her mobility. OBJECTIVE: Pain: Patient c/o severe pain in B hips with transfers and gait training, she also reports chest discomfort post gait training which she describes as a ripping pain. Both complaints were reported to her primary nurse. BED MOBILITY/TRANSFERS Sit-supine: I Sit-stand: SBA Stand-sit: SBA GAIT Assistive Device: FWW Weight bearing: Full Assist: CGA Distance: 15' Deviation: Standing rest x3, c/o B hip pain, instance of knees buckling x1 with self-recovery ASSESSMENT: Patient tolerated session with complaint of increased fatigue and B hip pain with transfers and gait training. She was able to tolerate gait training with FWW support and CGA, although does demonstrates slow pacing and short step height and length. PLAN: Continue with global strengthening and general conditioning for improved activity tolerance and mobility. TREATMENT CODE/TIME: Session 1: Not available - at MRI testing Session 2: 25 minutes; [id number] x2 (12:45)
[2022-05-10] MEDS: Acetaminophen 325 MG TAB PO (14:44)
--- NOTE | 2022-05-10 15:40 | PGE_ITS ---
Date of Service Date of service: 05/10/22 Time of Service: 15:40 Assessment and Plan Assessment and plan (1) Congestive heart failure due to cardiomyopathy: Status: Acute Assessment and plan: LVEF 20-25% with global hypokinesis on echo. Cause of hypoxia. Hypoxia has resolved. Switch to PO furosemide. Continue aldactone. Ok to start long acting metoprolol. I did also add aspirin. Will investigate coverage for cassi banegas. Will need ischemic workup - discussed with Dr Rodgers - as outpatient is ok. EKG changes are not c/w ischemia. Continue to monitor on tele. Monitor Cr, I/Os, daily weights. I will get inpatient stress MPI if possible. 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 L3- L4; severe L5-S1 but no cauda equina; I suspect her complaints of leg weakness are more psychogenic. She has been noted by P.T. and nursing to be able to use her legs. I have no doubt she probably has some leg pains or even paresthesias from the foraminal narrowing but nothing that would explain weakness to the point of her legs buckling. (3) Back pain: Status: Acute Assessment and plan: Bilateral lumbosacral foraminal DJD as noted above. The patient reports chronic back pain, chronic leg weakness, a h/o repeated falls at home. Check B12 level. Obtain a neurology consulted. PT consulted. (4) Pleural effusion: Start date: 05/07/22 Status: Acute Assessment and plan: Due to CHF. As above (5) Pericardial effusion: Start date: 05/07/22 Status: Acute Assessment and plan: Due to CHF As above (6) HTN (hypertension): Status: Chronic Assessment and plan: Add metoprolol to aldactone. (7) Substance abuse in remission: Assessment and plan: IVD in remission. Hep C antibody reactive. Viral load pending. HIV negative. (8) Acute electrocardiogram changes: Status: Acute Assessment and plan: Disucssed with Dr Rodgers, who did not feel that the EKG changes represented acute ischemia, necessarily. She did not feel that the EKGs looked that different from the admission. She felt that this was due to LVH. She recommended an outpatient MPI stress test when the patient was more diuresed. Continue asa. I will proceed w/ stress MPI prior to discharge as she is now euvolemic (9) Musculoskeletal chest pain: Status: Acute Assessment and plan: prn tylenol (10) Gastritis: Status: Acute Assessment and plan: Continue PPI, carafate. Provide antiemetics. (11) Anxiety: Status: Chronic Assessment and plan: prn lorazepam (12) DVT prophylaxis: Status: Acute Assessment and plan: SC enoxaparin (13) Discharge planning issues: Status: Acute Assessment and plan: Full code Continues to require hospitalization. Subjective Subjective Interval history since last seen: Patient has nonischemic chest wall pain/tenderness to palpation. She is not dyspneic and does not reuqire supplemental oxygen. She is currently on room air w/ SPO2 of 96%. She has diuresed net negative over 7 liters since admission and her wt has gone down from 59.2 kg to 55.4 kg. I told her that we will get stress MPI study tomorrow to evaluate for ischemic cardiomyopathy. Her only complaint today is she is just tired/fatigued. Exam Narrative Exam Narrative: Petite middle age female, lying in bed flat, not dyspneic, not using accessory respiratory muscles. Lungs: clear to ausculatation Heart: RRR, no murmur or rub or gallops Abdomen: soft, nondistended, nontender legs/feet: no edema or cyanosis, normal movement Objective Last Vital Signs Temp 36.6 C 05/10/22 14:42 Pulse 79 05/10/22 14:42 Resp 17 05/10/22 14:42 BP 118/78 05/10/22 14:42 Pulse Ox 96 05/10/22 14:42 Laboratory Results - last 24 hr 05/07/22 05/10/22 05/10/22 17:35 05:40 05:40 WBC 7.47 RBC 4.33 Hgb 11.6 Hct 36.9 MCV 85 MCH 26.8 L MCHC 31.4 L RDW 14.6 Plt Count 290 MPV 9.5 Immature Gran % 0.4 Neutrophils % 56.5 Lymphocytes % 30.5 Monocytes % 7.8 Eosinophils % 3.9 Basophils % 0.9 Nucleated RBC % 0.0 Absolute Neutrophils 4.22 Absolute Lymphocytes 2.28 Absolute Monocytes 0.58 Absolute Eosinophils 0.29 Absolute Basophils 0.07 Sodium 144 Potassium 3.6 Chloride 102 Carbon Dioxide 36.3 H Anion Gap 5.7 BUN 22 H Creatinine 1.2 H Est GFR (CKD-EPI 2020) 52.14 Glucose 99 Calcium 8.9 Magnesium 2.4 Vitamin B12 HCV RNA Qual (PCR) Detected A Hepatitis C RNA Quant [id number] H 05/10/22 05:40 WBC RBC Hgb Hct MCV MCH MCHC RDW Plt Count MPV Immature Gran % Neutrophils % Lymphocytes % Monocytes % Eosinophils % Basophils % Nucleated RBC % Absolute Neutrophils Absolute Lymphocytes Absolute Monocytes Absolute Eosinophils Absolute Basophils Sodium Potassium Chloride Carbon Dioxide Anion Gap BUN Creatinine Est GFR (CKD-EPI 2020) Glucose Calcium Magnesium Vitamin B12 742 HCV RNA Qual (PCR) Hepatitis C RNA Quant Time Spent with Patient Time Spent with Patient: 25-34 minutes Time was spent: preparing to see the patient(eg.review tests), ordering medications,tests, procedures, indepentently interpreting results, counseling the patient and care coordination
--- NOTE | 2022-05-10 17:20 | PDOC.CMPRO ---
- If Service Date Differs Date of service: 05/10/22 Time of Service: 17:20 Care Management Progress Note S/O: Lien was lying in bed when CM met with her. She stated that she is doing ok today. requested that CM inquire about the cost of new medications that will likely be ordered on discharge. CM asked Lien about her pharmacy, and she stated that she would like to establish at [facility] in [facility]. CM offered to send her demographic and insurance information to the pharmacy, which she agreed to. CM contacted the pharmacy, who stated that she will have a $3 copay for each medication. CM will continue to follow. A: Lien is a 61 year old female admitted to [facility] on 05/07/22 with pulmonary edema, hypoxic respiratory failure. P: Anticipate Lien will return home once medically cleared. She will transport via private vehicle by family vs [facility]. She will follow up with the stone unloader PCP, and her discharge plan of care. CM will continue to follow.
[2022-05-10] MEDS: Atorvastatin 40 MG TAB PO (19:53)
[2022-05-10] MEDS: Sacubitril/Valsartan 24 mg/26 mg TAB 1 EACH PO (19:53)
[2022-05-10] MEDS: LORazepam 0.5 MG TAB PO (21:16)
[2022-05-10] MEDS: Enoxaparin 40 MG/0.4 ML SYR SC (21:16)
--- NOTE | 2022-05-11 | DI.NM_ITS ---
APPROVED REPORT Exam: Pharmacologic Patient Location: In-Patient Room/Bed: 215 Stress Nurse: Kemi Zhu RN Ordering Provider:EDUARDO BOYKINYOSELIN, Contact Number: [phone] BMI: 22.61 Baseline Rhythm: Sinus Rhythm Comment: Baseline ST changes Indications: Cardiomyopathy Medical History Medical History: Back pain, anxiety, CHF, HTN, pericordial effusion, pleural effusion, pulmonary naty a, hepatitis C. Cardiac Medications: Protonix, aspirin, furosemide, metoprolol, entresto, aldactone, lipitor, lovenox Allergies: Contrast Cardiac Risk Factors: HTN Previous Cardiac Procedures: None Pretest Chest Pain Characteristics: None Exercise History: Sedentary Physical Disabilities: Back, Legs Lung Sounds: Clear to auscultation Heart Sounds: Regular Stress Test Details Test: Pharmacologic stress testing performed using 0.4 mg of regadenoson per 5 mL given IV over 10 s econds. Reason for pharmacologic stress test: physical limitation. Nuclear Acquisition: Rest Tc-99m/Stress Tc-99m 1 day Rest Isotope: Tc-99m Sestamibi. Dose: 10.5 Date: 05/11/2022 Injection Time: 0825 Stress Isotope: Tc-99m Sestamibi. Dose: 32.0 Date: 05/11/2022 Injection Time: 1016 HR Resting HR Supine: 83 bpm Max Heart Rate (APMHR): 161.447277 bpm Target HR (85% APMHR): 136.837112 bpm Max HR Achieved: 105 bpm % of APMHR: 65.22 Recovery HR: 100 bpm BP Resting BP Supine: 128/92 mmHg Max BP: 148/92 mmHg Recovery BP: 138/92 mmHg ECG Resting ECG: Sinus Rhythm, nonspecific ST-T abnormalities Ectopy: None Stress ECG: Sinus Rhythm, nonspecific ST-T abnormalities ST Change: Nondiagnostic resting ST abnormalities Recovery ECG: Sinus Rhythm, nonspecific ST-T abnormalities Recovery ST Change: Nondiagnostic resting ST abnormalities Recovery Arrhythmia: Rare PVC Clinical Stress Symptoms: Headache, nausea, dizziness (head spinning) Angina Score: None Rate Pressure Product: 47523 Stress ECG Conclusion 1. Electrocardiogram showed left ventricular hypertrophy with repolarization abnormalities 2. Patient underwent testing with pharmacologic stress using regadenoson 3. Peak heart rate achieved was 65% of predicted for age 4. The electrocardiographic portion of the test was nondiagnostic 5. See MPI report Stress Test Summary STAGE HR BP SpO2 Symptoms NOTES Supine 83 128/92 98 1 min post Lexiscan injection 103 132/82 Head spinning, nausea, headache 3 min post Lexiscan injection 102 148/92 6 min post Lexiscan injection 100 138/92 Patient noted and reported to be very anxious and scared. Patient very talkative and conversive aft er test. Dizziness and nausea resolved. Intermittently verbalizing feeling weak, tired, and numb, mariam hernandez easily redirected with conversation, stating she has felt tired her entire hospitalization. No a dverse symptoms reported. Utilized restroom with staff assistance. Patient no longer c/o headache at time of departing stress lab for F/U imaging. MPI Conclusion Myocardial perfusion is normal. There is no evidence of ischemia or prior infarction EF is 24% with global hypokinesis Radiologist Interpretation Radiologist Interpretation by: Brennen Beverly MD Interpretation Date/Time: 05/12/2022 17:04:12
[2022-05-11 03:36] VITALS: BP 125/75; PULSE 80; RESP 17; TEMP 36.9; O2SAT 99
[2022-05-11 07:32] VITALS: BP 111/77; PULSE 84; RESP 14; TEMP 36.4; O2SAT 99
[2022-05-11] MEDS: Empaglifozin 10 MG TAB PO (08:54)
[2022-05-11] MEDS: Sacubitril/Valsartan 24 mg/26 mg TAB 1 EACH PO (08:55)
[2022-05-11] MEDS: Docusate Sodium 100 MG CAP PO (08:55)
[2022-05-11] MEDS: Pantoprazole 40 MG TABCR PO (08:55)
[2022-05-11] MEDS: Normal Saline Flush 10 ML SYR IVP (08:56)
[2022-05-11] MEDS: Sucralfate 1 GM TAB PO ×3 (08:56→16:43)
[2022-05-11] MEDS: Aspirin E.C. 81 MG TABEC PO (08:56)
[2022-05-11] MEDS: Spironolactone 25 MG TAB PO (08:56)
[2022-05-11 11:26] VITALS: BP 150/98; PULSE 95; RESP 16; TEMP 36.7; O2SAT 99
[2022-05-11] MEDS: Polyethylene Glycol 3350 17 GM PACKET PO (11:49)
[2022-05-11] MEDS: Furosemide 20 MG TAB PO ×2 (11:51→16:43)
[2022-05-11] MEDS: Regadenoson 0.4 MG/5 ML SYR IVP (11:51)
[2022-05-11] MEDS: Metoprolol CR 25 MG TABCR PO (11:51)
[2022-05-11 11:53] VITALS: BP 128/87; PULSE 92; RESP 18; TEMP 36.8; O2SAT 97
[2022-05-11] MEDS: LORazepam 0.5 MG TAB PO (12:17)
--- NOTE | 2022-05-11 13:14 | CMDISCH_ITS ---
- If Service Date Differs Date of service: 05/11/22 Time of Service: 13:14 LACE Index Scoring Tool - Questions: Length of Stay (in days): 4 - 6 Acuity (Admit via E.D.?): Yes E.D. Visits: 1 - Answers: Total Score: 8 Risk of Readmission: Low Risk Care Management Discharge Reason for Hospitalization: Pulmonary Edema, Hypoxic respiratory failure Discharge Plan: Lien will return home once medically cleared. She will transport via private vehicle by family vs [facility]. She will follow up with Sarika Gill NP at [facility] (swimming pool salesperson provider) and have new orders for [facility] PT through [facility]; Dr. Wells will follow orders. Patient/Family Education Needs: Review discharge instructions, discuss Ask Me Three. Services Needed at Discharge: Home Health Care Services (PT)
[2022-05-11 15:25] VITALS: BP 147/81; PULSE 88; RESP 16; TEMP 37.2; O2SAT 97
--- NOTE | 2022-05-11 15:42 | PTTR_ITS ---
Date of service: 05/11/22 Time of Service: 15:00 PT Notes Visit Reasons: Pulmonary Edema,Hypoxic Respiratory Failure Inpatient Physical Therapy Treatment Note [facility] Date: 05/11/2022 SUBJECTIVE: Lien is pleasant and agreeable to participating in PT. She reports that she continues to have pain in B hips, however is hesitant to request pain medication, as she does not want to seem drug-seeking. She reports that she is trying to get home for [employer] so that she can spend it with her children and grandchildren who mean a lot to her. OBJECTIVE: Issued and fit FWW to patient for at home use. Completed [facility] form and submitted to Care Management. Pain: Patient c/o pain in B hips with transfers and gait training BED MOBILITY/TRANSFERS Sit-supine: I Supine-sit: I Sit-stand: SBA Stand-sit: SBA GAIT Assistive Device: FWW Weight bearing: Full Assist: CGA Distance: 20' Deviation: Standing rest x1, c/o B hip pain, instance of knees buckling x4 with self-recovery ASSESSMENT: Patient tolerated session with complaint of increased fatigue and B hip pain with transfers and gait training. She was able to tolerate gait training with FWW support and CGA, although does demonstrates slow pacing and short step height and length. She continues to demonstrate B knee buckling, although is able to self-correct. PLAN: Continue with global strengthening and general conditioning for improved activity tolerance and mobility. TREATMENT CODE/TIME: Session 1: Not available - at stress-test Session 2: 25 minutes; 86308 x2 (15:00)
--- NOTE | 2022-05-11 16:30 | W.PM.DS.N ---
Date of service: 05/11/22 Time of Service: 16:30 DS: Diagnosis Discharge Diagnosis (1) Congestive heart failure due to cardiomyopathy: Status: Acute Asessment and Plan: 61 yr old female former IV drug abuser who has been abstinent for several years and hx of HTN but has not been on medications and has not been followed by a physician for several yrs who presented w/ 3 months of exertional dyspnea that has become worse recently. She also complains of chest burning and chest wall aching. Patient presented tachypneic RR 28, tachycardic HR 133,sinus tachycardia, and hypertensive BP 190/132 but not hypoxic. She was found to be in acute HF w/ pro-BNP 6400, normal troponin I was normal. D-dimer was elevated at 1111 leading to getting CTA chest did not demonstrate PE but did show cardiomegaly, small bilateral pleural effusions and small pericardial effusion, and interstitial edema. Patient was treated w/ iv lasix. serial troponin I were negative for acute ACS. Echocardiogram was performed which showed the following: Conclusion Normal left ventricular wall thickness and chamber size.? Estimated ejection fraction is 25%.? There is global hypokinesis Right ventricle appears normal in size, hypocontractile Normal right atrial size.? Left atrium is moderately dilated Aortic valve is trileaflet and mildly sclerotic with trace regurgitation Normal mitral valve with moderate mitral regurgitation Normal tricuspid valve with mild regurgitation.? Estimated right ventricular systolic pressure is 37 mmHg Trivial pericardial effusion Dr. Rodgers, employment instructional associate was consulted, see her consult note for details. Stress MPI was recommended once her acute CHF was controlled. This was initially going to be performed as outpatient however, as she quickly came under improved control w/ iv lasix then oral lasix, she had her stress MPI done prior to discharge. This reportedly showed no ischemia according to . No written report was completed at the time of the patient's discharge and none was available at the time of completion of this discharge note. Patient was put on iv lasix then transitioned to oral lasix. Jardiance and spironolactone, Entresto and Jardiance were added as well as Toprol XL. Patient was put on atorvastatin and aspirin. Patient was discharged in much improved condition w/ no dyspnea and no exertional chest pressure, she has residual musculoskeletal chest wall discomfort, likely d/t costochondritis. (2) Acute electrocardiogram changes: Status: Acute (3) HTN (hypertension): Status: Chronic Asessment and Plan: BP came under much improved control w/ diuretic, metoprolol and Entresto. BP on discharge was running 128/87 to 147/81. (4) Leg weakness, bilateral: Status: Acute Asessment and Plan: patient reported subjective leg weakness, and low back pains.Manual muscle testing did not reveal any focal limb weakness. During P.T. assesments she was able to bear weight but would demontrate buckling of her legs. MRI of LS spine was performed which showed DJD of LS spine w/ neuroforaminal narrowing but no central spinal canal stenosis. P.T. was consulted and worked w/ her while she was hospitalized. She was able to perform independent bed mobility and was walking w/ FWW and only SBA. She was recommended to have home P.T. for continued global strengthening exercises and general conditioning to improve her activity tolerance and endurance. (5) Back pain: Status: Acute (6) Pleural effusion: Status: Acute (7) Pericardial effusion: Status: Acute (8) Substance abuse in remission: (9) Musculoskeletal chest pain: Status: Acute Asessment and Plan: MSK d/t costochondritis; recommend topical voltaren (10) Gastritis: Status: Acute Asessment and Plan: patient was treated w/ protonix and carafate which resolved her dyspepsia. patient should follow up w/ surgery for EGD at the PCP discretion (11) Anxiety: Status: Chronic (12) Discharge planning issues: Status: Deleted Asessment and Plan: patient will be discharged w/ home health services including physical therapy, follow up to be w/ her PCP in next week and she will be referred to Dr. Rodgers for managment of her CHF. Discharge Plan Disposition Patient Disposition: Home W/Home Health Services Condition: Improving Discharge Details Reason For Visit: Pulmonary Edema,Hypoxic Respiratory Failure Admit Date/Time: 05/07/22 21:27 Admit Provider: Power Ward Attending Provider: Power Ward Primary Care Provider: ,Local Home Meds and New Rx's Prescriptions: New atorvastatin 40 mg Tablet 40 mg PO QPM Qty: 30 0RF Jardiance 10 mg Tablet 10 mg PO QAM Qty: 30 0RF furosemide 20 mg Tablet 20 mg PO BID@0830,1600 Qty: 60 0RF metoprolol succinate 25 mg Tablet Extended Release 24 Hr 25 mg PO DAILY Qty: 30 0RF spironolactone 25 mg Tablet 25 mg PO DAILY Qty: 30 0RF Entresto 24-26 mg Tablet 1 tab PO BID Qty: 60 0RF sucralfate 1 gram Tablet 1 g PO AC & HS Qty: 120 0RF pantoprazole 40 mg Tablet,Delayed Release (Dr/Ec) 40 mg PO DAILY@0730 Qty: 30 0RF Discharge Instructions Instructions: Metoprolol (By mouth), Furosemide (By mouth), Sucralfate (By mouth), Atorvastatin (By mouth), Pantoprazole (By mouth), Empagliflozin (By mouth), Sacubitril/Valsartan (By mouth), Heart Failure (GEN), Heart Healthy Diet (DC), Gastroesophageal Reflux in Infants (DC) Additional Instructions: You were found to have acute congestive heart failure. A myocardial infarction, i.e. heart attack was ruled out. However you had a stress test that did not show any ischemia, i.e. no decreased blood flow to your heart muscle. However, an echocardiogram, i.e. ultrasound of the heart, demonstrated diffuse global dysfunction of your heart. That is your heart muscle does not pump well and that w/ each beat it pumps out only about half the volume that a normal heart would pump out. Your condition is known as a nonischemic cardiomyopathy. The exact cause is not known. It may be a result of some prior viral illness such as COVID. Other causes include diabetes however we did a test for diabetes which was a glycohemoglobin A1c which was normal at 5.3% indicating that you are not diabetic. Cardiomyopathy can be caused by chronic alcohol use, therefore you should avoid any alcohol (you have indicated to me that you do not consume alcohol). Your cardiomyopathy may be related to your prior history of drug abuse. We have started you on medications to keep you out of acute congestive failure. Over time the medications will improve the performance of your heart. You should follow up w/ a employment instructional associate, locally. We are referring you to Dr. Erin Rodgers here at [facility]. You should also follow locally w/ a primary care provider who can help you keep track of your medications and to monitor your resonse to your medications. I have written for follow up lab work to be done next week to monitor your kidney function and electrolytes since you have been put on diuretics for the congestion. Stand Alone Forms: Nursing Discharge Form Referrals: Mckayla Rodgers MD [ [facility] STAFF PHYSICIAN] - (Office will call you to make a follow up appointment.) Sarika Gill ANIMAL NUTRITION CONSULTANT [NURSE PRACTITIONER] - 05/17/22 1:00 pm Activity:: Activity as Tolerated Equipment/Supplies:: Walker Diet:: Low Sodium Discharge Orders Discharge Orders: Discharge Order (Routine); Ordered 05/11/22 Ordered By: Ian Arias Other Ambulatory Orders: Basic Metabolic Panel (Routine) Timeframe: 1 Week Facility: [facility] - Location: Laboratory Outpatient - [facility] Ordered By: Ian Arias Discharge Data Discharge Date/Time-TO BE ENTERED AT DEPARTURE: 05/11/22 17:07 DS: Summary Time Spent with Patient providing and/or coordinating discharge services: Greater than 30 minutes Status at Discharge Functional status at discharge: uses cane/walker Overall status at discharge: patient is progressing back to baseline Mental Status: mental status grossly normal Speech and Movement: speech and movement normal Mood: congruent mood Affect: normal affect Exam Narrative Exam Narrative: Petite middle age female, lying in bed flat, not dyspneic, not using accessory respiratory muscles. Lungs: clear to ausculatation Heart: RRR, no murmur or rub or gallops Abdomen: soft, nondistended, nontender legs/feet: no edema or cyanosis, normal movement Psych Mental Status: mental status grossly normal Speech and Movement: speech and movement normal Mood: congruent mood Affect: normal affect DS: Data Vitals/I&O Vitals and I&O: Vital Signs Temperature 37.2 C 05/11/22 15:25 Temperature Source Tympanic 05/11/22 15:25 Pulse 88 05/11/22 15:25 Pulse Rhythm Regular 05/11/22 09:43 Pulse 126 H 05/07/22 18:46 Respiratory Rate 16 05/11/22 15:25 Respiratory Effort Normal, Non-Labored 05/11/22 09:43 Respiratory Depth Normal 05/11/22 09:43 Respiratory Pattern Normal 05/11/22 09:43 Blood Pressure 147/81 H 05/11/22 15:25 Blood Pressure Mean 129 05/07/22 18:46 Blood Pressure Position Sitting 05/07/22 15:45 Pulse Oximetry 97 05/11/22 15:25 Oxygen Delivery Method Room Air 05/11/22 15:25 Oxygen Flow Rate 0 05/11/22 15:25 Pain Level 5 05/11/22 09:43 Comment Informed RN Alanna of BP & HR 05/07/22 23:18 Intake & Output 05/10/22 05/11/22 05/11/22 23:59 11:59 23:59 Intake Total 180 / 180 Output Total 750 / 1200 500 / 1310 810 / 1310 Balance -570 / -1020 -500 / -1310 -810 / -1310 Weight 56.2 kg Intake: Oral 180 / 180 Output: Urine 750 / 1200 500 / 1310 810 / 1310 Other: Urine Color Pale Yellow Yellow Urine Appearance Clear Clear Clear Urine Odor None Normal Normal Stool Size Moderate Stool Characteristics Soft Brown Voiding Methods Bedside Commode Bedside Commode Bedside Commode [facility] All Active Problems (Updated 05/12/22 @ 00:03 by MAIRA OTERO) Medication monitoring encounter (Acute) Back pain (Acute) Leg weakness, bilateral (Acute) Constipation (Acute) Anxiety (Chronic) Gastritis (Acute) Musculoskeletal chest pain (Acute) Acute electrocardiogram changes (Acute) Congestive heart failure due to cardiomyopathy (Acute) HTN (hypertension) (Chronic) Pericardial effusion (Acute) Pulmonary edema (Acute) Pleural effusion (Acute) Medical History (Updated 05/12/22 @ 00:03 by MAIRA OTERO) Substance abuse in remission Social History Smoking/Tobacco Use Status: Never Smoking risk assessment performed?: Yes Alcohol Intake: never Drug use: Never Substance use type: does not use Do you feel safe at home: Yes Do you feel safe in your relationship?: Yes Time Spent with Patient Time Spent with Patient: 45-69 minutes Time was spent: preparing to see the patient(eg.review tests), ordering medications,tests, procedures, indepentently interpreting results, counseling the patient and care coordination
== END 2022-05-11 17:07 | disposition home health service (06) | DRG 291 ==
LOC: ER 22:18 → MS 22:37
PROVIDERS: Internal Medicine; Admitting Provider Family Medicine; Emergency Provider Registered Nurse Emergency; Visit Provider Family Medicine
DX: I11.0 Hypertensive heart disease with heart failure (principal); J96.01 Acute respiratory failure with hypoxia; I31.39 Other pericardial effusion (noninflammatory); E87.0 Hyperosmolality and hypernatremia; I50.1 Left ventricular failure, unspecified; I42.8 Other cardiomyopathies; R73.9 Hyperglycemia, unspecified; R91.8 Other nonspecific abnormal finding of lung field; R59.0 Localized enlarged lymph nodes; R94.31 Abnormal electrocardiogram [ECG] [EKG]; K59.00 Constipation, unspecified; F41.9 Anxiety disorder, unspecified; K29.70 Gastritis, unspecified, without bleeding; R07.89 Other chest pain; R53.1 Weakness; G89.29 Other chronic pain; M54.9 Dorsalgia, unspecified; R29.6 Repeated falls; M47.816 Spondylosis without myelopathy or radiculopathy, lumbar region
CPT/HCPCS: 36410; 36415; 51702; 71250; 71275; 73521; 78452; 80048; 80053; 80061; 80076; 80307; 82805; 85027; 85652; 86803; 87389; 87522; 87637; 93005; 94640; 96361; 96374; 96375; 97112; 97162; 97530; 99285; J1650; 72148; 74176; 81003; 81015; 82607; 83036; 83605; 83735; 83880; 84443; 84484; 85025; 85379; 85610; 85730; 86140; 93010; 93017; 93306; 93970; 99223; 99232; 99233; 99239; J1200; J1940; J2060; J2270; J2405; J2785; J2930; J3490; J7613; J7644

== ENCOUNTER 2022-05-18 13:50 | Outpatient (CLI) | payer MEDICAID, SELFPAY ==
[2022-05-18 13:34] LABS: Anion Gap 6.4 mmol/L (3-11); BUN 15 mg/dL (7-18); CO2 32.6 mmol/L (21.0-32.0); Calcium 9.1 mg/dL (8.5-10.1); Chloride 103 mmol/L (98-107); Glucose 117 mg/dL (74-106); Potassium 3.3 mmol/L (3.5-5.1); Sodium 142 mmol/L (136-145)
== END 2022-05-18 13:51 | disposition home or self-care (01) ==
LOC: LBO 13:50
PROVIDERS: Visit Provider Internal Medicine
DX: I10 Essential (primary) hypertension (principal); E87.0 Hyperosmolality and hypernatremia; I50.9 Heart failure, unspecified; Z51.81 Encounter for therapeutic drug level monitoring
CPT/HCPCS: 36415; 80048

== ENCOUNTER 2022-07-04 08:03 | Outpatient (CLI) | payer MEDICAID, SELFPAY | END 2022-07-04 08:04 | disposition home or self-care (01) | LOC: DI.CARD 08:04 | PROVIDERS: Visit Provider Internal Medicine Cardiovascular Disease | CPT/HCPCS: 93010 ==

== ENCOUNTER 2022-07-12 00:45 | Outpatient (CLI) | payer MEDICAID, SELFPAY ==
--- NOTE | 2022-07-12 14:12 | DI.CT_ITS ---
Exam(s) CT CHEST WO EXAM: CT CHEST WO CLINICAL HISTORY: F/U 05/08/2021 CT-chest--RLQ nods 8 11mm.r91.1. TECHNIQUE: Imaging protocol: Axial computed tomography images were obtained and coronal and sagittal reformatted images were created and reviewed. COMPARISON: CT CT CHEST PE CTA from 05/07/2022 FINDINGS: The examination is limited due to patient motion artifact. Tracheobronchial tree: Patent where visualized. Pulmonary parenchyma: No consolidation or dominant measurable mass. No architectural distortion. Mediastinum and Brinda: No dominant adenopathy or fluid collection. The esophagus is unremarkable. Thyroid gland: Unremarkable. Pleura: No effusion or pneumothorax. Heart: The heart is not dilated. No coronary artery calcifications are seen. No pericardial effusion. Aorta: Thoracic aorta non-dilated. Atherosclerosis is present. Upper abdomen: Hepatic cysts are again seen. Lymph nodes: Within normal limits. Soft tissues: There is again seen a well-circumscribed subcutaneous cystic lesion along the right freddy k which has a benign appearance. This may represent a sebaceous cyst. Bones:Within normal limits for the patient's age. IMPRESSION: 1. Interval resolution of the bilateral pleural effusions and pulmonary infiltrates. 2. No acute pulmonary process. RADIATION DOSE DELIVERED: 331.99mGy.cm Total DLP 331.99mGy.cm Total DLP DATA REPOSITORY: All CT scans at this facility are submitted to the National Radiology Data Registry (NRDR) Dose Index Registry (DIR) with the [employer] (ACR). RADIATION OPTIMIZATION: All CT scans at this facility use at least one of these dose optimization te chniques: automated exposure control; mA and/or kV adjustment per patient size (includes targeted exa ms where dose is matched to clinical indication); or iterative reconstruction.
[2022-07-12 15:26] LABS: Anion Gap 7.1 mmol/L (3-11); BUN 11 mg/dL (7-18); CO2 32.9 mmol/L (21.0-32.0); CREATININE 0.9 mg/dL (0.55-1.02); Calcium 9.4 mg/dL (8.5-10.1); Chloride 102 mmol/L (98-107); Estimated GFR 73.64 (mL/min/1.73m2); Glucose 81 mg/dL (74-106); Potassium 3.2 mmol/L (3.5-5.1); Sodium 142 mmol/L (136-145)
== END 2022-07-12 01:05 ==
LOC: DI 00:45
PROVIDERS: Visit Provider Nurse Practitioner Adult Health
DX: R06.02 Shortness of breath (principal); R59.0 Localized enlarged lymph nodes; R91.1 Solitary pulmonary nodule; I10 Essential (primary) hypertension; I50.9 Heart failure, unspecified
CPT/HCPCS: 36415; 71250; 80048

== ENCOUNTER 2022-07-27 08:09 | Outpatient (CLI) | payer MEDICAID, SELFPAY | END 2022-07-27 08:10 | disposition home or self-care (01) | LOC: DI.CARD 08:12 | PROVIDERS: Visit Provider Internal Medicine Cardiovascular Disease | DX: I10 Essential (primary) hypertension (principal) | CPT/HCPCS: 93010 ==

== ENCOUNTER 2022-10-13 07:19 | Outpatient (CLI) | payer MEDICAID, SELFPAY ==
--- NOTE | 2022-10-13 07:15 | RT.EKG_ITS ---
APPROVED REPORT Exam: Resting ECG Reason for Exam: cardiac evaluation Patient Location: O HR:66 bpm ECG Measurements Heart Rate 66 AXIS RI 164 P 65 QRSd 97 QRS -12 QT 403 T 12 QTc 423 Conclusion Sinus rhythm...normal P axis, V-rate 50- 99 Poor R wave progression
== END 2022-10-13 07:20 | disposition home or self-care (01) ==
LOC: DI.CARD 07:20
PROVIDERS: PCP Nurse Practitioner Adult Health; Visit Provider Internal Medicine Cardiovascular Disease
DX: I10 Essential (primary) hypertension (principal); I42.9 Cardiomyopathy, unspecified; I50.9 Heart failure, unspecified
CPT/HCPCS: 93010

== ENCOUNTER → 2023-01-12 00:45 | Outpatient (CLI) | payer MEDICAID, SELFPAY ==
--- NOTE | 2023-01-12 07:30 | DI.US_ITS ---
APPROVED REPORT EXAM: Comprehensive 2D, Doppler, and color-flow Echocardiogram Patient Location: Out-Patient Cut Off Saw Operator: Zaira Bello RDCS (AE) Indications: Re check LV function, CHF due to cardiomyopathy, HTN Other Information Study Quality: Good Conclusion Normal left ventricular wall thickness and chamber size. Ejection fraction is 45 to 50%. There is s tage I diastolic dysfunction. There are no segmental wall motion abnormalities Normal right ventricular size and systolic function Both atria are normal in size There is no structural or hemodynamically significant valvular disease Wall motion Left Ventricle The left ventricle is normal size. Left ventricular systolic function is mildly decreased. There is n ormal left ventricular wall thickness. There is global mild hypokinesis of the left ventricle. Transm itral Doppler flow pattern suggests impaired LV relaxation. There is no ventricular septal defect vis ualized. LVEF is 45-50%. Right Ventricle The right ventricle is normal size. The right ventricular systolic function is normal. Atria The left atrium size is normal. The right atrium size is normal. The interatrial septum is intact wit h no evidence for an atrial septal defect. Aortic Valve The aortic valve is normal in structure. Aortic valve is trileaflet. There is no aortic valvular sten osis. No aortic regurgitation is present. Mitral Valve The mitral valve is normal in structure. No evidence of mitral valve stenosis. Trace mitral regurgita tion. Tricuspid Valve The tricuspid valve is normal in structure. There is no tricuspid valve stenosis. Trace tricuspid reg urgitation. Unable to assess PA pressure. Pulmonic Valve The pulmonary valve is normal in structure. There is no pulmonic valvular stenosis. There is no pulmo jean marie valvular regurgitation. Great Vessels The aortic root is normal in size. The ascending aorta is normal Aortic arch is normal in caliber. I VC is normal in size and collapses >50% with inspiration. Pericardium There is no pericardial effusion. 2D Dimensions IVSD d PLAX 0.82 cm F: 0.6-1.0 Ao Root d 2.78 cm F: 2.7 - 3.3 LVPW d PLAX 0.82 cm F: 0.6 - 1.0 Ao Asc Diam d 3.22 cm F: 2.3 - 3.1 LVID d PLAX 4.16 cm F: 3.8 - 5.2 LVDs 3.23 cm F: 2.2 - 3.5 LV EF Teichholz 45.6 % FS 22.43 % LV EDV (Teich) 76.8 mL LV ESV (Teich) 41.8 mL M-Mode TAPSE 2.43 cm (M/F) >1.7 Auto EF LV EDV A4C 75.9 mL LV EDV A2C 82.2 mL LV EDV BP 78.2 mL LV ESV A4C 41.9 mL LV ESV A2C 46.0 mL LV ESV BP 42.9 mL LVEF(%) A4C 44.9 % LVEF(%) A2C 44.0 % LVEF(%) BP 45.1 % LV SV A4C 34.1 ml LV SV A2C 36.2 ml LV SV BP 35.2 ml LV CO A4C 2.8 L/min LV CO A2C 2.6 L/min LV CO BP 2.7 L/min HR A4C 82.76 BPM HR A2C 71.83 BPM LV EDV Index (BP) LV Strain Long Pk Overal Avg (s) 15.12 LA Volume LA Length A4C 4.8 cm LA Length A2C 4.8 cm LA Area A4C s 16.40 cm2 LA Area A2C s 15.44 cm2 LA Vol A4C A-L 47.25 mL LA Vol A2C A-L 42.16 mL LA Vol Biplane A-L 44.8 mL LA Vol/BSA A4C A-L LA Vol/BSA A2C A-L LA Vol/BSA BP A-L 29.3 mL/m2 LA Vol A4C MOD 42.9 mL LA Vol A2C MOD 39.8 mL LA Vol BP MOD 41.3 mL RA Volume RA Area A4C 11.0 cm2 RA ESV A4C (A-L) 21.9mL RA Vol/BSA A4C A-L RA Length A4C 4.7 cm RA ESV A4C (MOD) 20.9mL LV Diastology MV E' medial 0.049 (>0.07 m/s) MV E Vmax 0.59 (0.4-1.3 m/s) MV E/E' MED 12.13 (<14) MV A Vmax 0.90 (0.4-1.3 m/s) MV E' lateral 0.062 (>0.1 m/s) E/A Ratio 0.7 MV E/E' LAT 9.60 (<14) MV E' Average 0.055 m/s MV E/E'(average) 10.71 Aortic Valve AoV Vmax 1.50 m/s LVOT Vmax 1.05 m/s AoV Peak Grad 9.0 mmHg LVOT Peak Grad 4.4 mmHg AoV Area (Vmax) 2.02 cm2 LVOT VTI 0.214 m AoV VTI 0.312 m LVOT Mean Grad 2.3 mmHg AoV Mean Jonah. 1.08 m/s LVOT SV 61.99 mL AoV Mean Grad 5.3 mmHg LVOT Diam s 1.90 cm AoV Area (VTI) 1.99 cm2 Velocity Ratio 0.70 Mitral Valve MV DT 244 (160-240 msec) MV Vmax TIPS 0.91 m/s MV Mean Grad 1.5 (<2mmHg) MV VTI 0.174 m Pulmonary Valve PV Vmax 1.02 (0.5-1.5 m/s) RVOT Vmax 0.71 m/s PV Peak Grad 4.1 mmHg RVOT Peak Gr. 2.0 mmHg PV Mean Jonah 0.70 m/s RVOT VTI 0.131 m PV Mean Grad 2.3 mmHg RVOT Mean Gr. 1.0 mmHg Tricuspid Valve RA Pressure 3.00 mmHg TV S' 0.11 m/s
== END ==
PROVIDERS: PCP Nurse Practitioner Adult Health; Visit Provider Internal Medicine Cardiovascular Disease
DX: I42.9 Cardiomyopathy, unspecified (principal); I50.9 Heart failure, unspecified
CPT/HCPCS: 93306

== ENCOUNTER 2023-02-13 02:52 | Outpatient (CLI) | payer MEDICAID, SELFPAY ==
[2023-02-13 14:19] LABS: Anion Gap 7.7 mmol/L (3-11); BUN 11 mg/dL (7-18); CO2 30.3 mmol/L (21.0-32.0); CREATININE 0.8 mg/dL (0.55-1.02); Calcium 9.2 mg/dL (8.5-10.1); Chloride 106 mmol/L (98-107); Glucose 81 mg/dL (74-106); Potassium 3.6 mmol/L (3.5-5.1); Sodium 144 mmol/L (136-145)
== END 2023-02-13 02:53 | disposition home or self-care (01) ==
LOC: LBO 02:52
PROVIDERS: PCP Nurse Practitioner Adult Health; Referring Provider Nurse Practitioner; Visit Provider Nurse Practitioner
DX: E87.6 Hypokalemia (principal)
CPT/HCPCS: 36415; 80048

== ENCOUNTER 2023-02-16 09:42 | Day surgery (SDC) | payer MEDICAID, SELFPAY ==
--- NOTE | 2023-02-16 09:59 | W.ANESPRE ---
General Info Date of Service Date Performed: 02/16/23 Height: 4 ft 11 in Weight: 60.328 kg Body Mass Index (BMI): 26.9 Surgical Procedure: Operation Date: 02/16/23 12:40 Proposed Procedure Side Surgeon p Cataract Extraction with IOL Implant Right Narendra Minor MD Meds Allergies and Home Medications Allergies Allergy/AdvReac Type Severity Reaction Status Date / Time Penicillins Allergy Severe Anaphylaxis Verified 02/16/23 10:19 Iodinated Contrast Media Allergy Unknown Verified 02/16/23 10:19 Home Medication Medication Instructions Recorded metoprolol succinate 25 mg 25 mg PO DAILY #90 tabs 08/21/22 tablet,extended release 24 hr pantoprazole 40 mg tablet,delayed 40 mg PO .daily in AM #90 tabs 08/21/22 release potassium chloride 20 mEq 20 meq PO BID #180 tabs 08/21/22 tablet,extended release sacubitril 24 mg-valsartan 26 mg 1 tab PO BID #180 tabs 08/21/22 tablet (Entresto) spironolactone 25 mg tablet 25 mg PO .daily in AM #90 tabs 08/21/22 topiramate 25 mg tablet 25 mg PO HS #90 tabs 08/21/22 furosemide 20 mg tablet 20 mg PO BID@0830,1600 #180 tabs 08/25/22 atorvastatin 40 mg tablet 40 mg PO QPM #90 tabs 01/03/23 empagliflozin 10 mg tablet 10 mg PO QAM #90 tabs 01/03/23 (Jardiance) Current Visit Medications: Current Medications Generic Name Dose Route Start Last Admin Trade Name Freq PRN Reason Stop Dose Admin Acetaminophen 1,000 mg 02/16/23 06:00 Acetaminophen 500 Mg Tab PO 03/18/23 05:59 Q4H PRN PRN Balanced Salt Solution 500 ml 02/16/23 06:00 Balanced Salt Soln.-Plus 500 Ml Bag OP 03/18/23 05:59 DIRECTED ANGLE Miscellaneous Medication 0 ml 02/16/23 06:00 Prednisolone 1%, Moxifloxacin 0.5%, Bromfenac 0.09% 5ml Btl OD 03/18/23 05:59 DIRECTED ANGLE Miscellaneous Medication 0 ml 02/16/23 06:00 Tropicam./Phenyleph. (1/2.5%) 10 Ml Btl OD 03/18/23 05:59 DIRECTED [facility] Tetracaine HCl 0 ml 02/16/23 06:00 Tetracaine 0.5% 4 Ml Btl OD 03/18/23 05:59 DIRECTED [facility] Active Problems Active Problems: Problem Status Onset Code Cortical age-related cataract, right eye H25.011 Nuclear age-related cataract, right eye H25.11 Lymphadenopathy, thoracic R59.0 History of nicotine use Z87.891 Lung nodule seen on imaging study ~05/2022 R91.1 History of migraine Z86.69 Cortical cataract H26.9 Constipation ~06/2022 K59.00 Gastritis K29.70 Congestive heart failure due to cardiomyopathy ~05/2022 I50.9, I42.9 HTN (hypertension) I10 Pleural effusion ~05/2022 J90 Medical History Medical History Leg weakness, bilateral Musculoskeletal chest pain Acute electrocardiogram changes F/U up with cardiology 01/2023 Substance abuse in remission Pericardial effusion Tobacco Smoking/Tobacco Use Status: Never Alcohol Alcohol Intake: former Substance Use Substance use: Never Substance use type: does not use Vital Signs and Lab Results Lab Results Blood Type / Crossmatch: No Data to Display Complete Blood Count: No Data to Display Complete Metabolic Panel: Sodium 144 mmol/L (136-145) 02/13/23 13:15 Potassium 3.6 mmol/L (3.5-5.1) 02/13/23 13:15 Chloride 106 mmol/L (98-107) 02/13/23 13:15 Carbon Dioxide 30.3 mmol/L (21.0-32.0) 02/13/23 13:15 BUN 11 mg/dL (7-18) 02/13/23 13:15 Creatinine 0.8 mg/dL (0.55-1.02) 02/13/23 13:15 Est GFR (CKD-EPI 2020) 84.30 (mL/min/1.73m2) 02/13/23 13:15 Calcium 9.2 mg/dL (8.5-10.1) 02/13/23 13:15 Glucose 81 mg/dL (74-106) 02/13/23 13:15 Liver Function Panel: No Data to Display Coagulation Panel: No Data to Display Cardiac Panel: No Data to Display Arterial Blood Gas: No Data to Display Venous Blood Gas: No Data to Display Pancreas Panel: No Data to Display Thyroid Panel: No Data to Display Infectious Disease: No Data to Display Blood Cultures: No Data to Display Toxicology Panel: No Data to Display Anesthesia Assessment and Plan Anesthesia History Personal History: No History of Anesthesia Complications Family History: No Family History of Anesthesia Complications Exercise Tolerance Exercise Tolerance: Metabolic Equivalents>4 Pertinent Negatives Pertinent Negatives: No Symptoms of GERD Cardiac & Pulmonary Exam Cardiac Exam: Normal S1/S2 Heart Sounds Pulmonary Exam: Clear Bilateral Breath Sounds Implantable Cardiac Device Does patient have a Pacemaker or an ICD?: No Airway Exam Known Difficult Airway: No Mallampati Class: 2 Mouth Opening: Normal (> 3cm) Thyromental Distance: Greater than 3 cm Neck Range of Motion: Full ROM Neck Circumference: Normal Teeth Condition: Normal Dentition ASA Classification ASA Score: ASA 3 Emergency Case?: No NPO Status NPO Status: NPO Clears >2 hours, Solids >8 hours Anesthesia Plan Resuscitation Status: Full Code Anesthesia Technique: MAC Anesthesia Airway Planned: Natural Airway Monitors Used: Standard Monitors
[2023-02-16 10:06] VITALS: BP 136/88; PULSE 84; RESP 18; TEMP 36.7; O2SAT 97
[2023-02-16 10:27] VITALS: BMI 26.9
[2023-02-16] MEDS: Balanced Salt Soln.-PLUS 500 ML BAG OP (12:07)
[2023-02-16] MEDS: Tetracaine 0.5% 4 ML BTL OD (12:08)
[2023-02-16] MEDS: Duovisc Viscoelastic System EACH 1 EACH (12:09)
[2023-02-16] MEDS: Lidocaine 1% Pres-Free 5 ML VIAL (12:09)
[2023-02-16] MEDS: Trypan Blue 0.06% 0.5 ML SYR (12:10)
[2023-02-16] MEDS: Povidone-Iodine Ophth 30 ML BTL (12:10)
--- NOTE | 2023-02-16 12:22 | W.PM.DSUDISC ---
Date of service: 02/16/23 Time of Service: 12:22 Discharge Plan Disposition Patient Disposition: Home Discharge Details Attending Provider: Narendra Minor Primary Care Provider: Sarika Gill Home Meds and New Rx's Prescriptions: No Action topiramate 25 mg tablet 25 mg PO HS Qty: 90 0RF Rx Instructions: headache prevention potassium chloride 20 mEq tablet extended release 20 meq PO BID Qty: 180 0RF Rx Instructions: Hypokalemia metoprolol succinate 25 mg tablet extended release 24 hr 25 mg PO DAILY Qty: 90 3RF pantoprazole 40 mg tablet,delayed release (DR/EC) 40 mg PO .daily in AM Qty: 90 3RF Entresto 24-26 mg tablet 1 tab PO BID Qty: 180 3RF spironolactone 25 mg tablet 25 mg PO .daily in AM Qty: 90 3RF furosemide 20 mg tablet 20 mg PO BID@0830,1600 Qty: 180 3RF Jardiance 10 mg tablet 10 mg PO QAM Qty: 90 3RF atorvastatin 40 mg tablet 40 mg PO QPM Qty: 90 3RF Discharge Instructions Stand Alone Forms: DSU Post-Op CataractEdna (DSU) Discharge Orders Discharge Orders: Discharge Order (Routine); Ordered 02/16/23 Ordered By: Narendra Minor DS: Diagnosis Discharge Diagnosis (1) Cortical age-related cataract, right eye: Status: Resolved (2) Nuclear age-related cataract, right eye: Status: Resolved
[2023-02-16 12:23] VITALS: BP 150/84; PULSE 71; RESP 20; TEMP 36.7; O2SAT 98
--- NOTE | 2023-02-16 12:24 | W.PM.OP ---
Date of service: 02/16/23 Time of Service: : Operative Note Operative Note DATE OF PROCEDURE: 02/16/23 PRE-OP DIAGNOSIS: Nuclear/cortical cataract, right eye POST-OP DIAGNOSIS: same PROCEDURE: Cataract extraction using phacoemulsification with intraocular lens implant, right eye SURGEON: Narendra Minor ANESTHESIA TYPE: Local By Surgeon and MAC Refer to Anesthesia Record ESTIMATED BLOOD LOSS: 0 PATHOLOGY: none sent COMPLICATIONS: None Patient was transported to: same day Patient's condition: stable Implants: Ash Clareon [id number] Indications: Progressive decreased vision due to cataract, right eye Procedure Description: CATARACT SURGERY OPERATIVE REPORT PREOPERATIVE DIAGNOSIS: Nuclear/cortical cataract, right eye POSTOPERATIVE DIAGNOSIS: Same OPERATION: Cataract extraction using phacoemulsification with posterior chamber intraocular lens implant, right eye. IOL: IOL Sales Marketing Director/Model: Ash Clareon [id number] IOL Power: + 12.5 diopters IOL Serial Number: [id number] Optic Diameter: 6.0mm Haptic/Overall Diameter: 13.0mm PHACO INFO: AshProCertus BioPharmurion Vision System with OZil and Active Fluidics Cumulative Dispersed Energy (CDE): 4.57 seconds SURGEON: Narendra Minor MD, JAKOB ANESTHESIA: Monitored Anesthesia Care (MAC), with local sub-tenon's anesthetic infiltration COMPLICATIONS: None SPECIMENS: None INDICATIONS FOR PROCEDURE: The patient is a 62-year-old lady with history of diminished visual acuity in her left eye secondary to the development of nuclear/cortical cataract. She is significantly symptomatic that she desires cataract surgery and attempt to improve and maximize her vision. See office notes for detailed information. PROCEDURE: The correct surgical eye was identified and marked as the right eye and the pupil was dilated in the preoperative area using mydriatics and cycloplegics. The dilated pupil size was 7.0 mm. Oral sedation was administered in the form of an Imprimis MKO Melt (midazolam 3mg/ketamine 25mg/ondansetron 2mg). The patient was brought to the operating room where cardiopulmonary monitoring was instituted and surgical time-out was performed, confirming the correct operative eye and IOL power. Topical anesthesia was administered and ophthalmic povidone-iodine 5% was instilled into the conjunctival fornices. The wesly-ocular area was prepped with Betadine 10% solution and draped in the usual sterile fashion for intraocular surgery, including an aperture drape. A Tegaderm transparent film dressing was cut in half and used to cover the lashes and lid margins. Care was taken to sequester the lashes and lid margins under the Tegaderm dressing. A lid speculum was placed between the lids of the operative eye and the Estela-Chandra operating microscope was maneuvered into position. Sophie scissors were then used to make a conjunctival buttonhole approximately 6mm posterior to the limbus in the inferonasal quadrant. Blunt dissection was carried out to expose bare sclera, and a blunt-tipped sub-tenon?s anesthesia cannula was introduced and passed posteriorly along the globe where non-preserved plain lidocaine was injected into posterior sub-Tenon?s space. A sideport knife was used to make a paracentesis port. VisionBlue was injected into the anterior chamber and allowed to sit for 20 seconds. Intraocular phenylephrine/lidocaine was injected into the anterior chamber. The anterior chamber was then filled with viscoelastic. A keratome knife was used to construct a two--plane clear corneal tunnel extending 2.0mm into clear cornea. A flap was raised on the anterior capsule and capsulorhexis forceps were used to complete a continuous curvilinear capsulorhexis of 5.5 mm. Some zonular laxity was noted, mild. Balanced salt solution was then used to perform cortical cleaving hydrodissection and nuclear hydrodelineation until the lens could be freely rotated within the capsular bag. The lens nucleus was then disassembled and removed within the capsular bag and iris plane using phacoemulsification. Residual cortical material was removed using the I/A handpiece. The posterior capsule was carefully polished to remove as much residual lens epithelial cells as safely possible. The capsular bag was then inflated and the anterior chamber deepened with cohesive viscoelastic. The lens implant described above was inserted into the capsular bag using the Ash Autonome Injector. A Kuglen hook was used to dial the IOL into position. Residual viscoelastic was then removed first from posterior to the IOL, then from the anterior chamber using the I/A handpiece. The lens implant was noted to center nicely within the capsular bag. The incisions were stromally hydrated, and the anterior chamber was reformed using BSS. Then 0.5cc of moxifloxacin 1.0mg/ml were injected into the capsular bag and anterior chamber. The incisions were checked with a Weck spear and found to be secure. Several drops of ophthalmic povidone-iodine 5% were then applied to the eye followed by two drops of combination steroid/NSAID/antibiotic solution. The drapes were removed and a clear plastic protective eye shield was placed over the eye. The patient was then returned to Same Day Surgery in stable condition.
--- NOTE | 2023-02-16 12:31 | W.ANESPOSTOP ---
Postoperative Evaluation Date, Time and Location Date Performed: 02/16/23 Time Performed: 12:31 Patient Location: Day Surgery Unit Vital Signs Most Recent Imported Vital Signs: Most Recent Vital Signs Temp Pulse Resp BP Pulse Ox 36.7 C 84 18 136/88 97 02/16/23 10:06 02/16/23 10:06 02/16/23 10:06 02/16/23 10:06 02/16/23 10:06 Assessment Mental Status: Awake (Alert & Oriented to Patient Baseline) Airway and Respiratory Function: Patent airway with normal (patient baseline) respiratory exam Cardiovascular Function: Hemodynamically Stable Hydration Status: Adequately Hydrated Nausea & Vomiting: No Nausea or Vomiting Pain: Pt. Denies Any Pain Peripheral Nerve Block: Patient did not receive a nerve block
[2023-02-16 12:53] VITALS: BP 140/90; PULSE 75; RESP 18; TEMP 36.7; O2SAT 96
== END 2023-02-16 13:13 | disposition home or self-care (01) ==
LOC: SUR 09:42
PROVIDERS: PCP Nurse Practitioner Adult Health; Visit Provider Ophthalmology
PROC: (CPT 66984; principal; 2023-02-16 12:30)
DX: H25.011 Cortical age-related cataract, right eye (principal); H25.11 Age-related nuclear cataract, right eye; I50.9 Heart failure, unspecified; I42.9 Cardiomyopathy, unspecified; I10 Essential (primary) hypertension
CPT/HCPCS: 66984; 00123; V2632; J2003

== ENCOUNTER → 2023-03-21 14:04 | Outpatient (CLI) | payer MEDICAID, SELFPAY ==
--- NOTE | 2023-03-21 14:00 | DI.RAD_ITS ---
Exam(s) XR CHEST 2V PA LATERAL EXAM: XR CHEST 2V PA LATERAL CLINICAL HISTORY: r/o effusion I50.9 HERAT FAILURE I42.9 CARDIOMYOPATHY Z87.09 TECHNIQUE: 2D digital imaging was performed. COMPARISON: No exams were available for comparison FINDINGS: HEART: Normal size. Aorta: Not dilated. PULMONARY VASCULATURE: Normal. LUNGS: Clear. PLEURAL SPACE: No pleural effusion or pneumothorax. BONE:Unremarkable for age. Soft tissues: Unremarkable. IMPRESSION: No acute abnormality. DATA REPOSITORY: RADIATION DOSE DELIVERED:
== END ==
PROVIDERS: PCP Nurse Practitioner Adult Health; Visit Provider Nurse Practitioner Adult Health
DX: I50.9 Heart failure, unspecified (principal); Z87.09 Personal history of other diseases of the respiratory system
CPT/HCPCS: 71046

== ENCOUNTER 2023-04-27 09:36 | Day surgery (SDC) | payer MEDICAID, SELFPAY ==
[2023-04-27 09:43] VITALS: BP 119/82; PULSE 81; RESP 20; TEMP 36.7; O2SAT 98
--- NOTE | 2023-04-27 11:17 | ANES.PREOP_ITS ---
General Info Date of Service Date Performed: 04/27/23 Height: 4 ft 11 in Weight: 61.3 kg Body Mass Index (BMI): 27.3 Surgical Procedure: Operation Date: 04/27/23 11:25 Proposed Procedure Side Surgeon p Cataract Extraction with IOL Implant Left Narendra Minor MD Actual Procedure Side Surgeon p Cataract Extraction with IOL Implant Left Narendra Minor MD Pre-Op Diagnosis Post-Op Diagnosis CATARACT OF LEFT EYE CATARACT OF LEFT EYE Meds Allergies and Home Medications Allergies Allergy/AdvReac Type Severity Reaction Status Date / Time Penicillins Allergy Severe Anaphylaxis Verified 04/27/23 10:00 Iodinated Contrast Media Allergy Unknown Other (See Verified 04/27/23 10:00 Comment) gabapetin AdvReac Hallucinati Uncoded 04/27/23 10:00 on Home Medication Medication Instructions Recorded pantoprazole 40 mg tablet,delayed 40 mg PO .daily in AM #90 tabs 08/21/22 release sacubitril 24 mg-valsartan 26 mg 1 tab PO BID #180 tabs 08/21/22 tablet (Entresto) spironolactone 25 mg tablet 25 mg PO .daily in AM #90 tabs 08/21/22 atorvastatin 40 mg tablet 40 mg PO QPM #90 tabs 01/03/23 empagliflozin 10 mg tablet 10 mg PO QAM #90 tabs 01/03/23 (Jardiance) furosemide 20 mg tablet 20 mg PO BID@0830,1600 #180 tabs 02/19/23 celecoxib 200 mg capsule (Celebrex) 200 mg PO DAILY #90 caps 03/21/23 methylprednisolone 4 mg tablets in See Rx Instructions PO DIRECTED 03/21/23 a dose pack (Medrol (Aron)) #21 dose pk metoprolol succinate 25 mg 25 mg PO .bedtime #90 tabs 03/21/23 tablet,extended release 24 hr potassium chloride 20 mEq 20 meq PO BID #180 tabs 03/21/23 tablet,extended release topiramate 25 mg tablet 25 mg PO HS #90 tabs 03/21/23 Current Visit Medications: Current Medications Generic Name Dose Route Start Last Admin Trade Name Freq PRN Reason Stop Dose Admin Acetaminophen 1,000 mg 04/27/23 06:00 Acetaminophen 500 Mg Tab PO 05/27/23 05:59 Q4H PRN PRN Balanced Salt Solution 500 ml 04/27/23 06:00 Balanced Salt Soln.-Plus 500 Ml Bag OP 05/27/23 05:59 DIRECTED ANGLE Miscellaneous Medication 0 ml 04/27/23 06:00 Prednisolone 1%, Moxifloxacin 0.5%, Bromfenac 0.09% 5ml Btl OS 05/27/23 05:59 DIRECTED ANGLE Miscellaneous Medication 0 ml 04/27/23 06:00 04/27/23 10:22 Tropicam./Phenyleph. (1/2.5%) 10 Ml Btl OS 05/27/23 05:59 1 drp DIRECTED ANGLE Administration Tetracaine HCl 0 ml 04/27/23 06:00 Tetracaine 0.5% 4 Ml Btl OS 05/27/23 05:59 DIRECTED ANGLE PFSH Active Problems Active Problems: Problem Status Onset Code Cortical age-related cataract, left eye H25.012 Nuclear age-related cataract, left eye H25.12 Spinal stenosis, lumbar ~2022 M48.061 Cortical age-related cataract, right eye H25.011 Nuclear age-related cataract, right eye H25.11 History of nicotine use Z87.891 History of migraine Z86.69 Gastritis K29.70 Congestive heart failure due to cardiomyopathy ~05/2022 I50.9, I42.9 HTN (hypertension) I10 Medical History Medical History Constipation (~06/2022) Lymphadenopathy, thoracic CT shows resolution Lung nodule seen on imaging study (~05/2022) Pleural effusion (~05/2022) Leg weakness, bilateral Musculoskeletal chest pain Acute electrocardiogram changes F/U up with cardiology 01/2023 Substance abuse in remission Pericardial effusion Tobacco Smoking/Tobacco Use Status: Never Alcohol Alcohol Intake: former Substance Use Substance use: Never Substance use type: does not use Vital Signs and Lab Results Vital Signs Most Recent Vital Signs in EMR: Most Recent Vital Signs Temp Pulse Resp BP Pulse Ox 36.7 C 81 20 119/82 98 04/27/23 09:43 04/27/23 09:43 04/27/23 09:43 04/27/23 09:43 04/27/23 09:43 Lab Results Blood Type / Crossmatch: No Data to Display Complete Blood Count: No Data to Display Complete Metabolic Panel: No Data to Display Liver Function Panel: No Data to Display Coagulation Panel: No Data to Display Cardiac Panel: No Data to Display Arterial Blood Gas: No Data to Display Venous Blood Gas: No Data to Display Pancreas Panel: No Data to Display Thyroid Panel: No Data to Display Infectious Disease: 2 No Data to Display Blood Cultures: No Data to Display Toxicology Panel: No Data to Display Anesthesia Assessment and Plan Anesthesia History Personal History: No History of Anesthesia Complications Family History: No Family History of Anesthesia Complications Exercise Tolerance Exercise Tolerance: Metabolic Equivalents>4 Pertinent Negatives Pertinent Negatives: No Symptoms of GERD Cardiac & Pulmonary Exam Cardiac Exam: Normal S1/S2 Heart Sounds Pulmonary Exam: Clear Bilateral Breath Sounds Implantable Cardiac Device Does patient have a Pacemaker or an ICD?: No Airway Exam Known Difficult Airway: No Mallampati Class: 2 Mouth Opening: Normal (> 3cm) Thyromental Distance: Greater than 3 cm Neck Range of Motion: Full ROM Neck Circumference: Normal Teeth Condition: Normal Dentition ASA Classification ASA Score: ASA 3 Emergency Case?: No NPO Status NPO Status: NPO Clears >2 hours, Solids >8 hours Anesthesia Plan Resuscitation Status: Full Code Anesthesia Technique: MAC Anesthesia Airway Planned: Natural Airway Monitors Used: Standard Monitors
[2023-04-27 11:18] VITALS: BMI 27.3
--- NOTE | 2023-04-27 11:23 | W.PREOPHP ---
Assessment and Plan Assessment and plan (1) Cortical age-related cataract, left eye: Status: Acute Assessment and plan: Assessment: Visually significant cataract of the left eye. Plan: Cataract extraction with lens implantation of the left eye. (2) Nuclear age-related cataract, left eye: Status: Acute Assessment and plan: Assessment: Visually significant cataract of the left eye. Plan: Cataract extraction with lens implantation of the left eye History of Present Illness History of Present Illness Chief Complaint: Decreased vision left eye Narrative: The patient is a 62-year-old lady with history of diminished visual acuity in both eyes secondary to the development of bilateral nuclear and cortical cataract. She is significantly symptomatic that she desires cataract surgery and attempt to improve and maximize her vision. She has already undergone cataract surgery on 02/16/2023 and is doing well postoperatively. She now presents for cataract surgery in the left eye. Review of Systems All systems reviewed & are unremarkable except as noted in HPI and below PFSH All Active Problems Cortical age-related cataract, left eye (Acute) Nuclear age-related cataract, left eye (Acute) Spinal stenosis, lumbar (Acute ~2022) History of nicotine use (Acute) History of migraine (Acute) Toradol; Topamax Gastritis (Acute) PPI Congestive heart failure due to cardiomyopathy (Chronic ~05/2022) 05/07/22 ECHO LVEF 25% 01/2023 ECHO LVEF 50% HTN (hypertension) (Chronic) Medical History Constipation (~06/2022) Lymphadenopathy, thoracic CT shows resolution Lung nodule seen on imaging study (~05/2022) Pleural effusion (~05/2022) Leg weakness, bilateral Musculoskeletal chest pain Acute electrocardiogram changes F/U up with cardiology 01/2023 Substance abuse in remission Pericardial effusion Social History Smoking/Tobacco Use Status: Never Smoking risk assessment performed?: Yes Alcohol Intake: former Drug use: Never Substance use type: does not use Household members: family Housing: house Number of Children: 2 number of grandchildren: 5 Communication Needs: Corrective Lenses current occupation: not working Pets and animals: Yes (hedge hog, rat, snakes, bearded dragons ) Pets and animals: dog(s) Sexually active: No Current gender identity: female What is your relationship status?: living with partner How often do you talk on the phone with friends or family?: three or more times per week How often do you get together with friends or relatives?: three or more times per week Panel score (0-1 are the most socially isolated patients): 2 What type of physical activity do you participate in: regular exercise Duration: 15-30 minutes/day Frequency: 5-6 times per week Seatbelt use: always Helmet use: Yes 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 Do you feel safe at home: Yes Do you feel safe in your relationship?: Yes Meds Allergies and Home Medications Allergies Allergy/AdvReac Type Severity Reaction Status Date / Time Penicillins Allergy Severe Anaphylaxis Verified 04/27/23 10:00 Iodinated Contrast Media Allergy Unknown Other (See Verified 04/27/23 10:00 Comment) gabapetin AdvReac Hallucinati Uncoded 04/27/23 10:00 on Home Medications Medication Instructions Recorded Confirmed Type pantoprazole 40 mg tablet,delayed 40 mg PO .daily in AM #90 tabs 08/21/22 04/27/23 Rx release sacubitril 24 mg-valsartan 26 mg 1 tab PO BID #180 tabs 08/21/22 04/27/23 Rx tablet (Entresto) spironolactone 25 mg tablet 25 mg PO .daily in AM #90 tabs 08/21/22 04/27/23 Rx atorvastatin 40 mg tablet 40 mg PO QPM #90 tabs 01/03/23 04/27/23 Rx empagliflozin 10 mg tablet 10 mg PO QAM #90 tabs 01/03/23 04/27/23 Rx (Jardiance) furosemide 20 mg tablet 20 mg PO BID@0830,1600 #180 tabs 02/19/23 04/27/23 Rx celecoxib 200 mg capsule (Celebrex) 200 mg PO DAILY #90 caps 03/21/23 04/27/23 Rx methylprednisolone 4 mg tablets in See Rx Instructions PO DIRECTED 03/21/23 04/27/23 Rx a dose pack (Medrol (Aron)) #21 dose pk metoprolol succinate 25 mg 25 mg PO .bedtime #90 tabs 03/21/23 04/27/23 Rx tablet,extended release 24 hr potassium chloride 20 mEq 20 meq PO BID #180 tabs 03/21/23 04/27/23 Rx tablet,extended release topiramate 25 mg tablet 25 mg PO HS #90 tabs 03/21/23 04/27/23 Rx Exam Eyes Other: Most recent ocular examination reveals uncorrected visual acuity of 20/50 OD, 2200 OS. Extract motility is normal. Intraocular pressure is 16 OD, 15 OS. Slit-lamp examination is significant for a well-positioned PCIOL in the right eye with clear posterior capsule. In the left eye there is a severe cortical cataract with mild nuclear cataract. Funduscopic examination reveals disc cupping of 0.2 OD 0.25 OS with normal vessels, macula, peripheral retina and vitreous. Resp Auscultation: clear to auscultation bilaterally Cardio Rate: regular rate Rhythm: regular rhythm Results Last Vital Signs Temp 36.7 C 04/27/23 09:43 Pulse 81 04/27/23 09:43 Resp 20 04/27/23 09:43 BP 119/82 04/27/23 09:43 Pulse Ox 98 04/27/23 09:43
[2023-04-27] MEDS: Balanced Salt Soln.-PLUS 500 ML BAG OP (11:34)
[2023-04-27] MEDS: Lidocaine 1% Pres-Free 5 ML VIAL (11:36)
[2023-04-27] MEDS: Duovisc Viscoelastic System EACH 1 EACH (11:36)
[2023-04-27] MEDS: Tetracaine 0.5% 4 ML BTL OS (11:36)
[2023-04-27] MEDS: Povidone-Iodine Ophth 30 ML BTL (11:38)
[2023-04-27] MEDS: Trypan Blue 0.06% 0.5 ML SYR (11:38)
--- NOTE | 2023-04-27 11:55 | ROE_ITS ---
Date of service: 04/27/23 Time of Service: 11:55 Operative Note Operative Note DATE OF PROCEDURE: 04/27/23 PRE-OP DIAGNOSIS: Nuclear/cortical cataract, left eye POST-OP DIAGNOSIS: same PROCEDURE: Cataract extraction using phacoemulsification with intraocular lens implant, left eye SURGEON: Narendra Minor ANESTHESIA TYPE: Local By Surgeon and MAC Refer to Anesthesia Record PATHOLOGY: none sent COMPLICATIONS: None Patient was transported to: same day Patient's condition: stable Implants: Ash Clareon [id number] Indications: Progressive decreased vision due to cataract, left eye Procedure Description: CATARACT SURGERY OPERATIVE REPORT PREOPERATIVE DIAGNOSIS: Nuclear/cortical cataract, left eye POSTOPERATIVE DIAGNOSIS: Same OPERATION: Cataract extraction using phacoemulsification with posterior chamber intraocular lens implant, left eye. IOL: IOL Rate Quoting Operator/Model: Ash Clareon [id number] IOL Power: + 16.5 diopters IOL Serial Number: [id number] Optic Diameter: 6.0mm Haptic/Overall Diameter: 13.0mm PHACO INFO: AshAnimailurion Vision System with OZil and Active Fluidics Cumulative Dispersed Energy (CDE): 1.17 seconds SURGEON: Narendra Minor MD, JAKOB ANESTHESIA: Monitored Anesthesia Care (MAC), with local sub-tenon's anesthetic infiltration COMPLICATIONS: None SPECIMENS: None INDICATIONS FOR PROCEDURE: The patient is a 62-year-old lady with history of diminished visual acuity in both eyes secondary to the development of nuclear/cortical cataract. She is significantly symptomatic that she desires cataract surgery and attempt to improve and maximize her vision. See office notes for detailed information. She has already undergone cataract surgery in the right eye and is doing well postoperatively. PROCEDURE: The correct surgical eye was identified and marked as the left eye and the pupil was dilated in the preoperative area using mydriatics and cycloplegics. The dilated pupil size was 8.0 mm. Oral sedation was administered in the form of an Imprimis MKO Melt (midazolam 3mg/ketamine 25mg/ondansetron 2mg). The patient was brought to the operating room where cardiopulmonary monitoring was instituted and surgical time-out was performed, confirming the correct operative eye and IOL power. Topical anesthesia was administered and ophthalmic povidone-iodine 5% was instilled into the conjunctival fornices. The wesly-ocular area was prepped with Betadine 10% solution and draped in the usual sterile fashion for intraocular surgery, including an aperture drape. A Tegaderm transparent film dressing was cut in half and used to cover the lashes and lid margins. Care was taken to sequester the lashes and lid margins under the Tegaderm dressing. A lid speculum was placed between the lids of the operative eye and the Ash LuxOR Revalia operating microscope was maneuvered into position. Sophie scissors were then used to make a conjunctival buttonhole approximately 6mm posterior to the limbus in the inferonasal quadrant. Blunt dissection was carried out to expose bare sclera, and a blunt-tipped sub-tenon?s anesthesia cannula was introduced and passed posteriorly along the globe where non- preserved plain lidocaine was injected into posterior sub-Tenon?s space. A sideport knife was used to make a paracentesis port. VisionBlue was injected into the anterior chamber and allowed to sit for 20 seconds. Intraocular phenylephrine/lidocaine was injected into the anterior chamber. The anterior chamber was then filled with viscoelastic. A keratome knife was used construct a two-plane clear corneal tunnel extending 2.0mm into clear cornea. A flap was raised on the anterior capsule and capsulorhexis forceps were used to complete a continuous curvilinear capsulorhexis of 5.5 mm. The capsule was noted to be quite thin with a tendency to extend peripherally. Balanced salt solution was then used to perform cortical cleaving hydrodissection and nuclear hydrodelineation until the lens could be freely rotated within the capsular bag. The lens nucleus was then disassembled and removed within the capsular bag and iris plane using phacoemulsification. Residual cortical material was removed using the irrigation/aspiration handpiece. The posterior capsule was carefully polished to remove as much residual lens epithelial cells as safely possible. The capsular bag was then inflated and the anterior chamber deepened with viscoelastic. The lens implant described above was inserted into the capsular bag using the Ash Autonome Injector. A Kuglen hook was used to dial the IOL into position. Residual viscoelastic was then removed first from posterior to the IOL, then from the anterior chamber using the I/A handpiece. The lens implant was noted to center nicely within the capsular bag. The incisions were stromally hydrated, and the anterior chamber was reformed using BSS. Then 0.5cc of moxifloxacin 1.0mg/ml were injected into the capsular bag and anterior chamber. The incisions were checked with a Weck spear and found to be secure. Several drops of ophthalmic povidone-iodine 5% were then applied to the eye followed by two drops of combination steroid/NSAID/antibiotic solution. The drapes were removed and a clear plastic protective eye shield was placed over the eye. The patient was then returned to Same Day Surgery in stable condition.
--- NOTE | 2023-04-27 11:55 | W.PM.DSUDISC ---
Date of service: 04/27/23 Time of Service: 11:55 Discharge Plan Disposition Patient Disposition: Home Discharge Details Attending Provider: Narendra Minor Primary Care Provider: Sarika Gill Home Meds and New Rx's Prescriptions: No Action topiramate 25 mg tablet 25 mg PO HS Qty: 90 3RF Rx Instructions: headache prevention potassium chloride 20 mEq tablet extended release 20 meq PO BID Qty: 180 3RF Rx Instructions: Hypokalemia metoprolol succinate 25 mg tablet extended release 24 hr 25 mg PO .bedtime Qty: 90 3RF methylprednisolone [Medrol (Aron)] 4 mg tablets,dose pack See Rx Instructions PO DIRECTED Qty: 21 0RF Rx Instructions: 1 pack PO as directed; for lumbar spinal stenosis (back pain) celecoxib [Celebrex] 200 mg capsule 200 mg PO DAILY Qty: 90 1RF Rx Instructions: Chronic back pain (lumbar spinal stenosis) pantoprazole 40 mg tablet,delayed release (DR/EC) 40 mg PO .daily in AM Qty: 90 3RF Entresto 24-26 mg tablet 1 tab PO BID Qty: 180 3RF spironolactone 25 mg tablet 25 mg PO .daily in AM Qty: 90 3RF Jardiance 10 mg tablet 10 mg PO QAM Qty: 90 3RF atorvastatin 40 mg tablet 40 mg PO QPM Qty: 90 3RF furosemide 20 mg tablet 20 mg PO BID@0830,1600 Qty: 180 3RF Discharge Instructions Stand Alone Forms: [facility] Post-Op CataractEdna (DSU) Discharge Orders Discharge Orders: Discharge Order (Routine); Ordered 04/27/23 Ordered By: Narendra Minor DS: Diagnosis Discharge Diagnosis (1) Cortical age-related cataract, left eye: Status: Resolved (2) Nuclear age-related cataract, left eye: Status: Resolved
[2023-04-27 11:56] VITALS: BP 115/82; PULSE 84; RESP 20; TEMP 37; O2SAT 100
--- NOTE | 2023-04-27 12:05 | W.ANESPOSTOP ---
Postoperative Evaluation Date, Time and Location Date Performed: 04/27/23 Time Performed: 12:05 Patient Location: Day Surgery Unit Vital Signs Most Recent Imported Vital Signs: Most Recent Vital Signs Temp Pulse Resp BP Pulse Ox 37.0 C 84 20 115/82 100 04/27/23 11:56 04/27/23 11:56 04/27/23 11:56 04/27/23 11:56 04/27/23 11:56 Pain Score Most Recent Pain Score: Most Recent Pain Score Pain Level 0 04/27/23 11:56 Assessment Mental Status: Awake (Alert & Oriented to Patient Baseline) Airway and Respiratory Function: Patent airway with normal (patient baseline) respiratory exam Cardiovascular Function: Hemodynamically Stable Hydration Status: Adequately Hydrated Nausea & Vomiting: No Nausea or Vomiting Pain: Pt. Denies Any Pain Peripheral Nerve Block: Patient did not receive a nerve block
[2023-04-27 12:28] VITALS: BP 106/80; PULSE 87; RESP 18; TEMP 36.7; O2SAT 98
== END 2023-04-27 12:34 | disposition home or self-care (01) ==
LOC: SUR 09:36
PROVIDERS: PCP Nurse Practitioner Adult Health; Visit Provider Ophthalmology
PROC: (CPT 66984; principal; 2023-04-27 11:15)
DX: H25.012 Cortical age-related cataract, left eye (principal); H25.12 Age-related nuclear cataract, left eye; I10 Essential (primary) hypertension; Z98.41 Cataract extraction status, right eye
CPT/HCPCS: 66984; 00123; V2632; J2003

== ENCOUNTER 2023-12-19 12:02 | Outpatient (CLI) | payer MEDICAID, SELFPAY ==
--- NOTE | 2023-12-19 12:00 | RT.EKG_ITS ---
APPROVED REPORT Exam: Resting ECG Reason for Exam: SOB Patient Location: O HR:96 bpm ECG Measurements Heart Rate 96 AXIS MN 155 P 62 QRSd 104 QRS -19 QT 377 T 30 QTc 477 Conclusion Sinus rhythm...normal P axis, V-rate 50- 99 Borderline left axis deviation...QRS axis (-15,-29) Anteroseptal infarct, old...Q >40mS, V1-V2 Baseline wander in lead(s) III
== END 2023-12-19 12:03 | disposition home or self-care (01) ==
PROVIDERS: PCP Nurse Practitioner Adult Health; Visit Provider Nurse Practitioner
DX: I50.9 Heart failure, unspecified (principal); I42.9 Cardiomyopathy, unspecified; R06.02 Shortness of breath; R07.89 Other chest pain; F41.9 Anxiety disorder, unspecified; R25.2 Cramp and spasm
CPT/HCPCS: 93010

== ENCOUNTER 2023-12-19 12:29 | Outpatient (CLI) | payer MEDICAID, SELFPAY ==
[2023-12-19 12:54] LABS: Abs Immature Grans 0.02 10^3/uL (0.0-0.06); Absolute Basophil Count 0.06 10^3/uL (0.0-0.2); Absolute Lymphocyte Count 1.47 10^3/uL (1.2-3.4); Absolute Monocyte Count 0.41 10^3/uL (0.1-0.8); Absolute Neutrophil Count 5.74 10^3/uL (1.2-6.7); Basophils % 0.8 %; Eosinophils % 1.3 %; HCT 41.4 % (36.0-46.0); HGB 12.7 g/dL (11.2-15.7); Immature Grans % 0.3 %; Lymphocytes % 18.8 %; MCH 26.5 pg (27.0-33.0); MCHC 30.7 % (32.0-36.0); MCV 86 fL (80-95); MPV 9.3 fL (8.0-11.0); Monocytes % 5.3 %; Neutrophils % 73.5 %; Platelet Count 266 10^3/uL (130-400); RBC 4.79 10^6/uL (3.93-5.22); RDW 14.8 % (11.7-14.6); RDW-SD 46.7 fL
[2023-12-19 13:50] LABS: ALT 56 U/L (14-59); AST 41 U/L (15-37); Albumin 3.7 g/dL (3.4-5.0); Alkaline Phosphatase 108 U/L (46-116); Anion Gap 8.6 mmol/L (3-11); BUN 14 mg/dL (7-18); Bilirubin, Total 0.28 mg/dL (0.2-1.0); CO2 29.4 mmol/L (21.0-32.0); Calcium 8.7 mg/dL (8.5-10.1); Chloride 107 mmol/L (98-107); Estimated GFR 64.09 (mL/min/1.73m2); Glucose 123 mg/dL (74-106); Magnesium 2.2 mg/dL (1.8-2.4); Potassium 3.8 mmol/L (3.5-5.1); Sodium 145 mmol/L (136-145); TSH (W/Ref FT4) 1.69 uIU/mL (0.36-3.74)
== END 2023-12-19 12:30 | disposition home or self-care (01) ==
LOC: LBO 12:29
PROVIDERS: PCP Nurse Practitioner Adult Health; Visit Provider Nurse Practitioner
DX: R06.02 Shortness of breath (principal); R07.89 Other chest pain; F41.9 Anxiety disorder, unspecified; R25.2 Cramp and spasm; J45.909 Unspecified asthma, uncomplicated; I10 Essential (primary) hypertension
CPT/HCPCS: 36415; 80053; 83735; 84443; 85025

== ENCOUNTER 2023-12-24 08:35 | Outpatient (CLI) | payer MEDICAID, SELFPAY ==
--- NOTE | 2023-12-24 08:30 | RT.EKG_ITS ---
APPROVED REPORT Exam: Resting ECG Reason for Exam: CMP, CHF Patient Location: O HR:104 bpm ECG Measurements Heart Rate 104 AXIS KS 144 P 45 QRSd 86 QRS -12 QT 340 T 22 QTc 448 Conclusion Sinus tachycardia...rate> 99 Baseline wander in lead(s) V1 Poor R wave progression
== END 2023-12-24 08:36 | disposition home or self-care (01) ==
LOC: DI.CARD 08:36
PROVIDERS: PCP Nurse Practitioner Adult Health; Visit Provider Internal Medicine Cardiovascular Disease
DX: I50.9 Heart failure, unspecified (principal)
CPT/HCPCS: 93010

== ENCOUNTER 2024-06-09 12:27 | Outpatient (REF) | payer MEDICAID, SELFPAY ==
[2024-06-09 16:11] LABS: ALT 61 U/L (14-59); AST 45 U/L (15-37); Albumin 3.7 g/dL (3.4-5.0); Alkaline Phosphatase 107 U/L (46-116); BUN 11 mg/dL (7-18); Bilirubin, Total 0.2 mg/dL (0.2-1.0); CREATININE 0.9 mg/dL (0.55-1.02); Calcium 8.9 mg/dL (8.5-10.1); Chloride 103 mmol/L (98-107); Estimated GFR 72.73 (mL/min/1.73m2); Glucose 93 mg/dL (74-106); Sodium 142 mmol/L (136-145); Total Protein 8.2 g/dL (6.4-8.2)
[2024-06-09 22:55] LABS: HIV-1/2 Ag & Ab Screen Negative (Negative)
[2024-06-10 00:07] LABS: Hepatitis C Ab w Rflx HCV PCR Reactive (Negative)
[2024-06-10 12:30] LABS: Chlamydia Result Negative (Negative); GC Result Negative (Negative)
[2024-06-11 12:04] LABS: HCV RNA Detection Quantitative 11600000 IU/mL (Undetected); HCV RNA Qualitative Detected (Undetected)
== END 2024-06-09 12:28 | disposition home or self-care (01) ==
LOC: LBN 12:27
PROVIDERS: PCP Nurse Practitioner Adult Health; Visit Provider Nurse Practitioner Adult Health
DX: Z86.19 Personal history of other infectious and parasitic diseases (principal); Z11.3 Encounter for screening for infections with a predominantly sexual mode of transmission; Z11.4 Encounter for screening for human immunodeficiency virus [HIV]
CPT/HCPCS: 80053; 86803; 87389; 87491; 87522; 87591

== ENCOUNTER 2024-07-15 01:07 | Outpatient (CLI) | payer MEDICAID, SELFPAY ==
--- NOTE | 2024-07-15 12:30 | DI.US_ITS ---
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 Ejection fraction is 55 to 60%. Wall motio n is normal Normal right ventricular size and function Both atria are normal in size There is no structural or hemodynamically significant valvular disease Wall motion Left Ventricle The left ventricle is normal size. Left ventricular systolic function is normal. The left ventricular ejection fraction is within the normal range. There is normal left ventricular wall thickness. There is normal LV segmental wall motion. There is no ventricular septal defect visualized. LVEF is 55-60% . Right Ventricle The right ventricle is normal size. The right ventricular systolic function is normal. Atria The left atrium size is normal. The right atrium size is normal. The interatrial septum is intact wit h no evidence for an atrial septal defect. Aortic Valve The aortic valve is normal in structure. Aortic valve is trileaflet. There is no aortic valvular sten osis. No aortic regurgitation is present. Mitral Valve The mitral valve is normal in structure. No evidence of mitral valve stenosis. Trace mitral regurgita tion. Tricuspid Valve The tricuspid valve is normal in structure. There is no tricuspid valve stenosis. Trace tricuspid reg urgitation. Pulmonic Valve The pulmonary valve is normal in structure. There is no pulmonic valvular stenosis. Trace pulmonic re gurgitation. Great Vessels The aortic root is normal in size. The ascending aorta is normal in size. Aortic arch is normal in ca liber. IVC is normal in size and collapses >50% with inspiration. Pericardium There is no pericardial effusion. 2D Dimensions IVSD d PLAX 0.84 cm F: 0.6-1.0 Ao Root d 2.73 cm F: 2.7 - 3.3 LVPW d PLAX 0.75 cm F: 0.6 - 1.0 Ao Asc Diam d 3.13 cm F: 2.3 - 3.1 LVID d PLAX 4.80 cm F: 3.8 - 5.2 LVDs 3.44 cm F: 2.2 - 3.5 LV EF Teichholz 54.6 % FS 28.32 % LV EDV (Teich) 107.6 mL LV ESV (Teich) 48.8 mL Stroke Vol Index (Teich) 35.60 M-Mode TAPSE 2.97 cm (M/F) >1.7 Auto EF LV EDV A4C 89.0 mL LV EDV A2C 87.4 mL LV EDV BP 89.9 mL LV ESV A4C 39.9 mL LV ESV A2C 34.8 mL LV ESV BP 37.2 mL LVEF(%) A4C 55.1 % LVEF(%) A2C 60.2 % LVEF(%) BP 58.6 % LV SV A4C 49.0 ml LV SV A2C 52.6 ml LV SV BP 52.7 ml LV CO A4C 3.4 L/min LV CO A2C 3.3 L/min LV CO BP 3.4 L/min HR A4C 70.31 BPM HR A2C 63.05 BPM LV EDV Index (BP) LA Volume LA Length A4C 4.2 cm LA Length A2C 3.0 cm LA Area A4C s 8.64 cm2 LA Area A2C s 8.80 cm2 LA Vol A4C A-L 14.96 mL LA Vol A2C A-L 21.58 mL LA Vol Biplane A-L 21.2 mL LA Vol/BSA A4C A-L LA Vol/BSA A2C A-L LA Vol/BSA BP A-L 12.8 mL/m2 LA Vol A4C MOD 14.1 mL LA Vol A2C MOD 20.3 mL LA Vol BP MOD 19.7 mL RA Volume RA Area A4C 8.3 cm2 RA ESV A4C (A-L) 16.6mL RA Vol/BSA A4C A-L RA Length A4C 3.5 cm RA ESV A4C (MOD) 16.4mL LV Diastology MV E' medial 0.121 (>0.07 m/s) MV E Vmax 0.82 (0.4-1.3 m/s) MV E/E' MED 6.76 (<14) MV A Vmax 0.85 (0.4-1.3 m/s) MV E' lateral 0.149 (>0.1 m/s) E/A Ratio 1.0 MV E/E' LAT 5.47 (<14) MV E' Average 0.135 m/s MV E/E'(average) 6.05 Aortic Valve AoV Vmax 1.53 m/s LVOT Vmax 1.02 m/s AoV Peak Grad 9.3 mmHg LVOT Peak Grad 4.2 mmHg AoV Area (Vmax) 1.79 cm2 LVOT VTI 0.245 m AoV VTI 0.353 m LVOT Mean Grad 2.5 mmHg AoV Mean Jonah. 1.08 m/s LVOT SV 65.38 mL AoV Mean Grad 5.4 mmHg LVOT Diam s 1.80 cm AoV Area (VTI) 1.85 cm2 AV Regurg Peak Gr. 9.31 mmHg Velocity Ratio 0.67 Mitral Valve MV DT 179 (160-240 msec) Pulmonary Valve PV Vmax 1.11 (0.5-1.5 m/s) RVOT Vmax 0.84 m/s PV Peak Grad 4.9 mmHg RVOT Peak Gr. 2.9 mmHg PV Mean Jonah 0.76 m/s RVOT VTI 0.181 m PV Mean Grad 2.7 mmHg RVOT Mean Gr. 1.5 mmHg
== END 2024-07-15 01:27 ==
LOC: DI 01:07
PROVIDERS: PCP Nurse Practitioner Adult Health; Visit Provider Internal Medicine Cardiovascular Disease
DX: I50.9 Heart failure, unspecified (principal); I42.9 Cardiomyopathy, unspecified
CPT/HCPCS: 93306

== ENCOUNTER 2024-09-11 12:23 | Outpatient (REF) | payer MEDICAID, SELFPAY ==
--- NOTE | 2024-09-11 11:35 | PAPFT_PTH ---
PATIENT: Lien Keene LOC: [facility] U#:[id number] AGE/SX: 63/F ROOM: RE09/11/[address]: Sarika Gill APRN : 1960 BED: DIS: 09/11/2024 SPEC #: [id number] RECD: 09/11/24 17:49 STATUS: PRECIOUS REQ #: [id number] CORIN: 09/11/24 11:[address]: Sarika Gill DEPT: [facility] Cytology RECD BY: Gill Nguyen Tissues: 1 - CX/ENDOCX FOR PAP SMEARS Procedures: PAP THIN PREP/[facility] Screening HPV DNA PROBE Comments: [id number] (HPV 16 & 18/45)
[2024-09-12 11:22] LABS: Chlamydia Result Negative (Negative); GC Result Negative (Negative)
== END 2024-09-11 12:24 | disposition home or self-care (01) ==
LOC: LBN 12:23
PROVIDERS: PCP Nurse Practitioner Adult Health; Visit Provider Nurse Practitioner Adult Health
DX: Z11.3 Encounter for screening for infections with a predominantly sexual mode of transmission (principal); Z12.4 Encounter for screening for malignant neoplasm of cervix
CPT/HCPCS: 87491; 87591; 88142; 87480; 87510; 87624; 87660